=== PATIENT | female | born 1985 | race Caucasian/White ===

== ENCOUNTER → 2017-07-26 10:53 | Outpatient (CLI) | payer OTHER, SELFPAY ==
[2017-07-26 12:37] LABS: Absolute Lymphocyte Count 1.84 X10^3/ul (0.83-4.51); Absolute Neutrophil Count 4.5 X10^3/uL (2.0-7.7); Basophil# 0.02 X10^3/uL; Basophil% 0.3 % (0-1); Eosinophil# 0.07 X10^3/uL; Hematocrit 36.7 % (37-47); Lymphocyte # 1.84 X10^3/ul (4.0); Lymphocyte % 26.5 % (19-41); Mean Corp Hgb Conc 32.7 g/gl (32-36); Mean Corpuscular Hgb 28.2 pg (27.0-32.0); Mean Corpuscular Volume 86.4 fL (81-99); Mean Platelet Vol. 11.9 fl (6.2-12.0); Monocyte# 0.49 X10^3/uL; Monocyte% 7.1 % (0-10); Neutrophil # 4.51 X10^3/uL (2.7-7.7); Neutrophil % 64.8 % (47-70); POSITIVE COUNT NO; POSITIVE DIFFERENTIAL NO; POSITIVE MORPHOLOGY NO; Platelet Count 257 K/mm3 (150-450); RBC Distribution Width CV 13.7 % (11.6-14.6); RBC Distribution Width SD 42.1 fl (35.1-43.9); Red Blood Count 4.25 M/mm3 (4.2-5.4)
[2017-07-26 12:59] LABS: Vitamin B12 767 pg/mL (211-911)
[2017-07-26 13:24] LABS: ALB/GLOB Ratio 1.1 RATIO (0.9-2.4); AST(SGOT) 18 U/L (15-37); Alanine Aminotransfer ALT/SGPT 16 U/L (13-56); Alkaline Phosphatase 66 U/L (45-117); Anion Gap 6 (5-15); BUN 11 mg/dL (7-18); BUN/Creat Ratio 17.3 RATIO (10-20); Calcium,Total 7.7 mg/dL (8.5-10.1); Chloride 110 mmol/L (98-107); Creatinine, Serum 0.64 mg/dL (0.55-1.02); EST Glomerular Filtration Rate 116 mL/min (>60); Est Glom Filt Rate - Afr Amer 140 mL/min (>60); Ferritin 12 ng/mL (8-252); Globulin 3.6 g/dL (2.2-4.2); Glucose 76 mg/dL (74-106); Iron 92 ug/dL (50-170); Iron Binding Capacity,Total 425 ug/dL (250-450); Potassium 3.7 mmol/L (3.5-5.1); Protein, Total 7.6 g/dL (6.4-8.2); Sodium Level 140 mmol/L (136-145); Thyroid Stim Hormone (TSH) 1.58 uIU/mL (0.358-3.74)
== END ==
PROVIDERS: Family Provider Family Medicine; PCP Family Medicine; Visit Provider Family Medicine
DX: D64.9 Anemia, unspecified (principal)
CPT/HCPCS: 36415; 80053; 82607; 82728; 82746; 83540; 83550; 84443; 85025

== ENCOUNTER → 2018-03-19 17:10 | Outpatient (CLI) | payer OTHER, SELFPAY ==
[2018-03-19 16:34] VITALS: BMI 27.4
[2018-03-26 11:16] LABS: HPV APTIMA, High Risk Negative (Negative)
--- OUTSIDE RECORDS SUMMARY | 2018-05-06 22:48 | XMS RPT_ITS ---
:1985 Author Organization OHIP Care Team Providers Name Role Phone Hayley Keyes Attending Unavailable Gil Uribe Referring Unavailable Hayley Keyes Attending Unavailable Hayley Keyes Referring Unavailable Gil Uribe Primary Care Unavailable Gil Uribe Attending Unavailable Gil Uribe Primary Care Unavailable PROBLEMS PROBLEMS DATE TYPE CONDITION / CODE ATTENDING STATUS SOURCE 03/21/2018 Unknown Z12.4 - Encounter Sloan Keyes for screening for [facility] neoplasm of Repository cervix / Z12.4(ICD-10) 07/30/2017 Unknown D64.9 - Anemia, Gil Uribe unspecified / [facility] D64.9(ICD-10) Hospital Repository PROCEDURES PROCEDURES No Procedure Records FoundRESULTS 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 [place] [address] OFFICE VISIT Date of Service: 03/19/18 MR#: [id number] Acct: [id number] Name: SHANNON SIEGEL Rep #: [id number] : 1985 Provider: Hayley Keyes MD Age/Sex: 32/F Location: [facility] Status: Signed Intake Vital Signs03/19/18 Body Mass Index (BMI) 27.4 03/19/18 Height 5 ft 4 in 03/19/18 Weight: 130 lb 03/19/18 Body Mass Index (BMI) 22.3 03/19/18 Blood Pressure 118/70 Intake Visit Reasons: NEW ANNUAL - R/S FROM 03/19 Saw Maker Required: No Is patient in pain?: No Allergies amoxicillin Adverse Reaction (Severe, Verified 03/19/18 16:23) rash Medications Vits [Prenatabs FA ] 1 tab PO DAILY 01/29/15 [History Confirmed 03/19/18] Venlafaxine XR [Effexor Xr] 75 mg PO DAILY 01/29/15 [History Confirmed 03/19/18] Oxycodone [Oxyir] 5 - 10 mg PO Q4H PRN PRN #30 tab 07/21/16 [Rx Confirmed 03/19/18] elderberry fruit 200 mg capsule mg PO cap 03/19/18 [History Confirmed 03/19/18] Is last menstrual period known: Yes Last Menstral Period: 03/03/18 Post menopausal: No Patient : No : No PFSH Surgical History H/O breast biopsy (Acute) H/O section (Acute) History of ankle surgery (Acute) Family History Father Myocardial infarction Mother Endometriosis History of partial surgical removal of colon fibroid breast Social History number of children: 2 current occupational status: unemployed 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 DateName GA/Weeks Outcome Route Bth WeighInfant GeLabor LgtAnesthesiDel LocatProvider FOB t n h a n HPI NEW ANNUAL - R/S FROM 03/19: Details: SHANNON SIEGEL is a 32 year old who presents for annual exam. Last PAP: due History of abnormal PAP: yes Last mammogram: Female Reproductive History Last Menstral Period: 03/03/18 Cycle Length: 21-35 Bleeding Duration: 5 Questions: Metorrhagia: No, Sexually active: Yes, Dyspareunia: No, PCB: No ROS Const Constitutional: Reports as per HPI; denies poor appetite, fatigue, increased appetite, weight gain or weight loss Cardio Card: Denies chest pain Resp Resp: Denies dyspnea or cough GI GI: Reports as per HPI; denies bloating, abdominal pain, constipation, vomiting or nausea : Reports as per HPI and other; denies blood in urine, vaginal odor, vaginal itching, vaginal dryness, vaginal discharge, urinary urgency, urinary incontinence, urinary frequency, pelvic pain, painful urination, difficulty urinating, prolapse symptoms or nipple discharge Skin Skin/Breast: Denies breast pain, breast skin changes, nipple discharge, breast lump or changing lesions Exam Const General: cooperative, healthy appearing, comfortable, no acute distress, well developed, well groomed HENCA Head: normal to inspection, normocephalic Ears: hearing grossly normal bilaterally, external ears normal Nose: external nose normal Face and sinus: normal facial exam Neck Neck: normal visual inspection, full ROM, no lymphadenopathy Thyroid: thyroid normal Chest Chest palpation AND inspection: normal inspection of the chest Breast inspection: normal inspection of the breasts, normal inspection of the axillae Breast palpation: normal palpation of the breasts, normal palpation of the axillae, no axillary lymphadenopathy Resp Effort AND Inspection: normal respiratory effort GI Inspection: normal to inspection, non-distended Palpation: no guarding, soft, no hepatosplenomegaly General: bladder normal to palpation External Female Exam: normal external appearance, normal appearance of the urethra, no lesions Urethra: normal appearance of the urethra, normal palpation Speculum Exam - Vagina: normal appearance of the vagina, normal vaginal discharge Speculum Exam - Cervix: normal appearance of the cervix, no cervical discharge, no lesions, nontender Bimanual Exam- Vagina AND Uterus: No cervical tenderness, normal bimanual exam, uterine size normal, bladder normal to palpation, uterine mobility normal, uterine consistency normal, uterus non-tender, no cervical motion tenderness Bimanual Exam- Adnexa, other: normal adnexae, no adnexal masses, adnexae non-tender Skin General: no rashes or lesions noted Neuro General: alert, moves all extremities, no focal motor deficits Extrem General: no pedal edema, normal to inspection Psych Appearance: grossly normal Mental Status: mental status grossly normal Affect: normal affect Speech and Movement: speech and movement normal Attitude: cooperative Assessment AND Plan Problems 1. Encounter for gynecological examination without abnormal finding Z01.419 Plan Cervical cancer screening: pap hpv Breast cancer screening: clinical STD prevention and contraceptive options including their risks, benefits, and alternatives were reviewed with the patient and she chooses: none at this time, wishes to conceive, and desires TOLAC Encouraged maintenance of a healthy weight and active lifestyle and handout given. Calcium/vitamin D recommendations provided. Annual exam handout including recommendations for good health guidelines and basic screening information given. Problem list up to date, see problem list details for any additional plan information. follow up in one year for annual health maintenance exam or sooner if needed. Orders Orders: Coding Level of Care Code Off vis,new,prev 18-39yrs Diagnoses Encounter for gynecological examination without abnormal finding Z01.419 Gynecological examination findings: abnormal findings ABSENT 03/19/18 2330 <Electronically signed by Hayley Keyes MD> Date Hayley Keyes MD Cosigner Signature: Date (if applicable) CC: PAP IG HPV APTIMA Collected: 03/19/2018 Status: F Source: [place] 16/18,45 5:10 PM [facility] REPOSITORY Order Comment: CYTOLOGY INFORMATION: - CLINICAL INFORMATION: - DATE LMP/MENOPAUSE: - COLLECTION VIAL: Thin Prep Vial - CARD TABLE ATTENDANT SOURCE: CERVICAL - COLLECTION TECHNIQUE: CX BROOM ONLY Specimen Comment: [id number] Specimen Comment: Source.............Cervix Specimen Comment: No. of containers..01 ThinPrep Vial TYPE CODE TESTS RESULT OUT OF REFERENCE UNITS RANGE LAB L7400.0800 . High DIAGN Comment Result Comment: EPITHELIAL CELL ABNORMALITY. ATYPICAL SQUAMOUS CELLS OF UNDETERMINED SIGNIFICANCE. LAB L7400.0900 . Normal ADEQ Comment Result Comment: Satisfactory for evaluation. No endocervical component is identified. LAB L7400.1400 . Normal PERFORM Comment Result Comment: Juju Godfrey, Medical Assistant Secretary (ASCP) LAB L7400.1700 . Normal SIGN Comment Result Comment: Cecelia Ennis MD, Pathologist LAB L7400.1720 . Normal Path prov. Comment ICD9 Result Comment: R87.610 LAB L7400.2575 . Normal TEST METHOD Comment Result Comment: This liquid based ThinPrep(R) pap test was screened with the use of an image guided system. LAB L7400.2600 . Normal . COMM LAB L7400.2700 . Normal PAPSMR Comment Result Comment: The Pap smear is a screening test designed to aid in the detection of premalignant and malignant conditions of the uterine cervix. It is not a diagnostic procedure and should not be used as the sole means of detecting cervical cancer. Both false-positive and false-negative reports do occur. LAB L7400.2760 Negative Normal HPV APTIMA, Negative HR Result Comment: This test detects fourteen high-risk HPV types (16/18/31/33/35/39/45/ 51/52/56/58/59/66/68) without differentiation. Performed at: [facility] - [facility] [id number] Spiral Runner: Essence Melendez MD, Phone: [phone] Performed at: =G - [facility] [address] [id number] Spiral Runner: Essence Melendez MD, Phone: [phone] Performed By: #### L7400.0280 #### [facility] (refer to report for specific site) refer to report for address and phone number CBC W/DIFF, AUTOMATED Collected: 07/26/2017 Status: F Source: [place] 10:55 AM [facility] REPOSITORY Order Comment: Order Date: 07/26/17 Order Info: 0184-1 - CBCD TYPE CODE TESTS RESULT OUT OF RANGE REFERENCE UNITS LAB L100.1000 4.4-11.0 K/mm3 Normal WBC 7.0 LAB L100.1200 4.2-5.4 M/mm3 Normal RBC 4.25 LAB L100.1300 12.0-15.0 g/dl Normal HGB 12.0 LAB L100.1400 37-47 % Low HCT 36.7 LAB L100.1500 81-99 fL Normal MCV 86.4 LAB L100.1600 27.0-32.0 pg Normal MCH 28.2 LAB L100.1700 32-36 g/gl Normal MCHC 32.7 LAB L100.1810 11.6-14.6 % Normal RDW CV 13.7 LAB L100.1820 35.1-43.9 fl Normal RDW SD 42.1 LAB L100.1900 150-450 K/mm3 Normal PLT 257 LAB L100.2000 6.2-12.0 fl Normal MPV 11.9 LAB L100.2100 47-70 % Normal NEUT% 64.8 LAB L100.2200 19-41 % Normal LY% 26.5 LAB L100.2300 0-10 % Normal MONO% 7.1 LAB L100.2400 0-5 % Normal EO% 1.0 LAB L100.2500 0-1 % Normal BASO% 0.3 LAB L100.2550 0.0-0.9 % Normal IM GRAN % 0.300 Result Comment: IG% - Immature Granulocytes (promyelocytes, myelocytes and metamyelocytes) > 1% indicates that a LEFT SHIFT is Present. LAB L100.2620 2.0-7.7 X10 3/uL Normal Absolute Neut 4.5 LAB L100.2720 0.83-4.51 X10 3/ul Normal Absolute Lymph 1.84 Performed By: #### L100.0100, L503.0105, L500.4050, L501.9520, L503.6075, L503.6150, L503.6550, L506.0250 #### [facility] [address] [place], [place], [address] VITAMIN B12 Collected: 07/26/2017 Status: F Source: [place] 10:55 AM [facility] REPOSITORY Order Comment: Order Date: 07/26/17 Order Info: 2132-9 - B12 TYPE CODE TESTS RESULT OUT OF RANGE REFERENCE UNITS LAB L503.0105 211-911 pg/mL Normal Vitamin B12 767 Performed By: #### L100.0100, L503.0105, L500.4050, L501.9520, L503.6075, L503.6150, L503.6550, L506.0250 #### [facility] [address] [place], [address] COMPREHENSIVE METABOLIC Collected: 07/26/2017 Status: F Source: [place] SALAS 10:55 AM [facility] REPOSITORY Order Comment: Order Date: 07/26/17 Order Info: 0786-1 - CMP Order Info: 3016-3 - TSH Order Info: 2500-7 - TIBC Order Info: 2498-4 - FE Order Info: 2276-4 - WALTER Order Info: 2284-8 - FOLS Is Patient Taking Vitamins or Folic Acid Supplements? Y TYPE CODE TESTS RESULT OUT OF RANGE REFERENCE UNITS LAB L501.0100 74-106 mg/dL Normal GLU 76 Result Comment: Please note revised GLUCOSE reference range effective 2017. LAB L501.1000 7-18 mg/dL Normal BUN 11 LAB L501.1100 0.55-1.02 mg/dL Normal CREAT,SERUM 0.64 Result Comment: The validity of the calculated GFR AND GFRAA in patients over 70 years has not been determined. Clinical correlation is essential. LAB L501.1110 >60 mL/min Normal EST GFR 116 Result Comment: Non- GFR Calc LAB L501.1115 >60 mL/min Normal EST GFR - AA 140 Result Comment: GFR Calc LAB L501.1300 10-20 RATIO Normal BUN/CRE 17.3 LAB L501.1500 6.4-8.2 g/dL T Normal PROT 7.6 LAB L501.1800 3.2-5.0 g/dL Normal ALB 4.0 LAB L501.1950 2.2-4.2 g/dL Normal GLOB 3.6 LAB L501.2000 0.9-2.4 RATIO Normal A/G 1.1 LAB L501.2200 8.5-10.1 mg/dL Low CA 7.7 LAB L501.4100 15-37 U/L Normal AST 18 LAB L501.4305 45-117 U/L Normal ALK P 66 LAB L501.4405 13-56 U/L Normal ALT 16 LAB L501.4600 0.20-1.00 mg/dL T Normal BILI 0.40 LAB L501.5300 136-145 mmol/L NA Normal 140 LAB L501.5600 3.5-5.1 mmol/L K Normal 3.7 LAB L501.5900 98-107 mmol/L High CL 110 LAB L501.6100 21.0-32.0 mmol/L Normal CO2 24.0 LAB L501.6200 5-15 Normal GAP 6 Performed By: #### L100.0100, L503.0105, L500.4050, L501.9520, L503.6075, L503.6150, L503.6550, L506.0250 #### [facility] [address] [place], [place], [address] THYROID STIM HORMONE Collected: 07/26/2017 Status: F Source: [place] (TSH) 10:55 AM [facility] REPOSITORY Order Comment: Order Date: 07/26/17 Order Info: 0786-1 - CMP Order Info: 3016-3 - TSH Order Info: 2500-7 - TIBC Order Info: 2498-4 - FE Order Info: 2276-4 - WALTER Order Info: 2284-8 - FOLS Is Patient Taking Vitamins or Folic Acid Supplements? Y TYPE CODE TESTS RESULT OUT OF RANGE REFERENCE UNITS LAB L501.9520 0.358-3.74 uIU/mL Normal TSH 1.58 Performed By: #### L100.0100, L503.0105, L500.4050, L501.9520, L503.6075, L503.6150, L503.6550, L506.0250 #### [facility] [address] [place], [place], [address] IRON BINDING Collected: 07/26/2017 Status: F Source: [place] CAPACITY,TOTAL 10:55 AM [facility] REPOSITORY Order Comment: Order Date: 07/26/17 Order Info: 785- - CMP Order Info: 3 - TSH Order Info: 2499-7 - TIBC Order Info: 2494 - FE Order Info: 4 - WALTER Order Info: 228-8 - FOLS Is Patient Taking Vitamins or Folic Acid Supplements? Y TYPE CODE TESTS RESULT OUT OF RANGE REFERENCE UNITS LAB L503.6075 250-450 ug/dL Normal TIBC 425 Performed By: #### L100.0100, L503.0105, L500.4050, L501.9520, L503.6075, L503.6150, L503.6550, L506.0250 #### [facility] [address] [place], [place], [address] IRON Collected: 07/26/2017 Status: F Source: [place] 10:55 AM [facility] REPOSITORY Order Comment: Order Date: 07/26/17 Order Info: 785-04 - CMP Order Info: 3 - TSH Order Info: 7 - TIBC Order Info: 4 - FE Order Info: 2275-07 - WALTER Order Info: 2283-8 - FOLS Is Patient Taking Vitamins or Folic Acid Supplements? Y TYPE CODE TESTS RESULT OUT OF RANGE REFERENCE UNITS LAB L503.6150 50-170 ug/dL Normal IRON 92 Performed By: #### L100.0100, L503.0105, L500.4050, L501.9520, L503.6075, L503.6150, L503.6550, L506.0250 #### [facility] [address] [place], [place], [address] FERRITIN Collected: 07/26/2017 Status: F Source: [place] 10:55 AM [facility] REPOSITORY Order Comment: Order Date: 07/26/17 Order Info: 785-1 - CMP Order Info: 3 - TSH Order Info: 2500-7 - TIBC Order Info: 24984 - FE Order Info: 227-4 - WALTER Order Info: 2284-8 - FOLS Is Patient Taking Vitamins or Folic Acid Supplements? Y TYPE CODE TESTS RESULT OUT OF RANGE REFERENCE UNITS LAB L503.6550 8-252 ng/mL Normal FERRITIN 12 Performed By: #### L100.0100, L503.0105, L500.4050, L501.9520, L503.6075, L503.6150, L503.6550, L506.0250 #### [facility] [address] [place], [address] FOLATES, (FOLIC ACID) Collected: 07/26/2017 Status: F Source: [place] 10:55 AM [facility] REPOSITORY Order Comment: Order Date: 07/26/17 Order Info: 0786-1 - CMP Order Info: 3016-3 - TSH Order Info: 2500-7 - TIBC Order Info: 2498-4 - FE Order Info: 2276-4 - WALTER Order Info: 2284-8 - FOLS Is Patient Taking Vitamins or Folic Acid Supplements? Y TYPE CODE TESTS RESULT OUT OF RANGE REFERENCE UNITS LAB L506.0250 3.1-55.4 ng/mL Normal FOLATES 43.40 Performed By: #### L100.0100, L503.0105, L500.4050, L501.9520, L503.6075, L503.6150, L503.6550, L506.0250 #### [facility] [address] [place], [address] ALLERGIES ALLERGIES DATE TYPE / CODE NAME / CODE REACTION SEVERITY SOURCE 03/19/2018 Drug amoxicillin/F Rash SV [facility] Allergy/4160 [id number](RXN Hospital 42038(SNOMED ORM) Repository CT) 07/21/2016 Drug No Known Unknown [facility] Allergy/4160 Allergies/F00 [facility] 17617(SNOMED 4136654(RXNOR Repository CT) M) ENCOUNTERS ENCOUNTERS ADMIT/DISCHARGE ACCOUNT ADMITTING ENCOUNTER LOCATION SOURCE NUMBER CLASS 03/19/2018 [id number] Ambulatory [address] ing:LABSPEC Repository 03/19/2018/ [id number] Ambulatory BMSBuilding:B [place] [address] [facility] Repository 07/26/2017 [id number] Ambulatory [address] ing:MFPLAB Repository PAYERS PAYERS ENCOUNTER GUARANTOR PAYER SUBSCRIBER SOURCE 03/19/2018 SHANNON Primary SHANNON [id number] Insurance:SHELBISOTIM PEREZB: Replaced By [facility] BRITTANY [id number], Number: Repository id [id number]: [id number] Date:[id number] [address] [address] [address]ZH: 03/19/2018 Secondary NOT GIVENUNK [place] Insurance:SELF PAY [facility] Number: Effective Repository Date:2018-03-19 03/19/2018 SHANNON Primary SHANNON [id number] Insurance:SHELBISOTIM PEREZB: [id number], Number: Repository id [id number]: [id number] Date:[id number] [address], [place] [address]BN: 03/19/2018 Secondary NOT GIVENUNK [place] Insurance:SELF PAY [facility] Number: Effective Repository Date:2018-03-19 07/26/2017 SHANNON [facility] SHANNON SIEGEL[address]21 Insurance:GINO PEREZB: [facility] [id number], Number: Repository id [id number]: [id number] Date:[id number], [place] [address]OH: 07/26/2017 Secondary NOT GIVENUNK [place] Insurance:SELF PAY [facility] Number: Effective Repository Date:2017-07-26
== END ==
PROVIDERS: Family Provider Family Medicine; PCP Family Medicine; Referring Provider Obstetrics & Gynecology; Visit Provider Obstetrics & Gynecology
DX: Z12.4 Encounter for screening for malignant neoplasm of cervix (principal)
CPT/HCPCS: 87624; 88175; G0145

== ENCOUNTER → 2019-04-09 13:45 | Outpatient (CLI) | payer OTHER, SELFPAY ==
[2019-03-30 09:09] VITALS: BMI 27.4
--- NOTE | 2019-04-09 13:46 | BI_ITS ---
MAMMOGRAPHY - BILATERAL DIAGNOSTIC REASON FOR EXAM: Female, 33 years old. 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 TECHNIQUE: Digital examination. Mediolateral oblique (MLO) and craniocaudad (CC) views of both breasts were obtained. CAD: CAD was performed on this study. COMPARISON: None. FINDINGS: Breast Composition: There are scattered areas of fibroglandular density. There is a 12.9 mm mass within the anterior right breast upper outer region directly underlying the palpable abnormality marker. The margins appear well defined except where they are obscured by adjacent fibroglandular tissue. There is no associated suspicious pleomorphic calcification. There is no associated architectural distortion. Recommend further evaluation and characterization with sonography at this time. No other significant abnormalities are identified. The left breast demonstrates no mammographic evidence of malignancy. BI/DIAG MAMM W/CAD, BILAT IMPRESSION: 12.9 mm right breast mass corresponding to the palpable abnormality. Recommend sonographic evaluation and characterization. ASSESSMENT CATEGORY: BIRADS Category 0: Incomplete. Need additional imaging evaluation. A letter regarding these results will be sent to the patient by the facility within 30 days. FOLLOW UP RECOMMENDATION: Ultrasound Recommended. (I) Approximately 10% of breast cancers are not detected by mammography. A normal mammogram should not delay biopsy of a clinically suspicious abnormality. Electronically Signed: Rigoberto Michel MD at 16:29 EST , Service support ,
--- NOTE | 2019-04-09 13:46 | US_ITS ---
STUDY: ULTRASOUND BREAST - RIGHT REASON FOR EXAM: Female, 33 years old. Right breast palpable mass. TECHNIQUE: Axial and longitudinal images of the RIGHT breast were performed with a high resolution ultrasound transducer. # OF IMAGES: 16 COMPARISON: No prior similar exams at this institution. FINDINGS: RIGHT Breast: There is a 12.9 x 0.73 x 1.11 cm, ovoid, hypoechoic mass (with low-level internal echoes) in the right breast 10 to 11:00 position located 2 cm from the nipple. This finding corresponds with the palpable abnormality as well as the mammographically evident abnormality from today''s exam. There is no posterior enhancement. There is no posterior shadowing. There is no change of shape during compression. The margins appear sharp and smooth. This finding is wider than it is tall. There is no associated significant vascularity. US/Breast Limited Unilateral IMPRESSION: Probably benign fibroadenoma. ASSESSMENT CATEGORY: BIRADS Category 3: Probably Benign - Short-Interval Follow-up Suggested. A letter regarding these results will be sent to the patient by the facility within 30 days. Recommendation: I highly recommend short interval follow-up unilateral right breast mammography and sonography in 3 months to document stability. Electronically Signed: Rigoberto Michel MD at 16:34 EST , Service support ,
== END ==
PROVIDERS: Family Provider Family Medicine; PCP Family Medicine; Referring Provider Obstetrics & Gynecology; Visit Provider Obstetrics & Gynecology
DX: N63.10 Unspecified lump in the right breast, unspecified quadrant (principal)
CPT/HCPCS: 76642; 77062; 77066; G0279

== ENCOUNTER → 2019-04-20 13:06 | Outpatient (CLI) | payer OTHER, SELFPAY ==
[2019-04-20 12:54] VITALS: BMI 27.4
--- NOTE | 2019-04-20 13:06 | RAD_ITS ---
STUDY: X-RAY - RIGHT WRIST REASON FOR EXAM: Female, 33 years old. CYST TECHNIQUE: 3 view(s) of the wrist were obtained. COMPARISON: None. FINDINGS: Normal visualized distal radius and ulna. Normal radiocarpal articulation. Normal distal radioulnar articulation. Normal carpal bones. Normal carpal articulations. Normal carpometacarpal articulation of the thumb. Normal second through fifth carpometacarpal articulations. Normal visualized metacarpal bones. The soft tissue structures are unremarkable. There is no demonstrated acute fracture. RAD/Wrist min 3 Views IMPRESSION: Normal x-ray examination of the wrist. Electronically Signed: Lyudmila De La Garza MD at 1:52 EST , Service support ,
== END ==
PROVIDERS: Family Provider Family Medicine; PCP Family Medicine; Referring Provider Orthopaedic Surgery; Visit Provider Orthopaedic Surgery
DX: M67.431 Ganglion, right wrist (principal)
CPT/HCPCS: 73110

== ENCOUNTER → 2019-05-06 09:29 | Outpatient (CLI) | payer OTHER, SELFPAY ==
[2019-05-06 15:55] VITALS: BMI 27.4
== END ==
PROVIDERS: Referring Provider Surgery; Visit Provider Surgery
DX: R92.8 Other abnormal and inconclusive findings on diagnostic imaging of breast (principal)

== ENCOUNTER → 2019-05-06 | Outpatient (CLI) | payer OTHER, SELFPAY ==
[2019-05-06 15:55] VITALS: BMI 27.4
--- NOTE | 2019-05-06 16:00 | BRBX_PTH ---
PATIENT: SHANNON SIEGEL LOC: [facility] U#:[id number] AGE/SX: 33/F ROOM: RE05/06/[address]: Dr. Julian Peacock MD : 1985 BED: DIS: 05/06/2019 SPEC #: [id number] RECD: 05/07/19 07:20 STATUS: ANDREAS RIO #: [id number] DEANNA: 05/06/19 16:[address]: Julian Peacock DEPT: SURGICAL PATHOLOGY RECD BY: Colby Mendieta Tissues: Right breast, NOS Procedures: Surgery Specimen Level IV HEADER OPERATION: Ultrasound-guided needle core biopsy of right breast PRE-OP DIAGNOSIS: Abnormal right mammogram TISSUE SUBMITTED: Right breast tissue ISCHEMIC TIME: 1 minute FIXATION TIME: 27.5 hours MICROSCOPIC DIAGNOSIS Right breast tissue, ultrasound-guided needle core biopsy: Fibroadenoma. Negative for atypia or malignancy. See comment. LISA:jair 1/31/20 COMMENT Correlation with clinical, radiologic findings and appropriate follow up are necessary. MICROSCOPIC DESCRIPTION Slides are reviewed. GROSS DESCRIPTION Received in fixative is one container labeled with the patient's name and designated right breast. The specimen consists of two elongated fragments of shaffer soft tissue each measuring 0.8 cm in length and 0.1 cm in diameter. The specimen is totally submitted in one cassette. / SJ:rg 05/07/19 TC:1 CPT: 71844
== END | disposition home or self-care (01) ==
LOC: LABSPEC 05-07 08:20
PROVIDERS: Visit Provider Surgery
DX: D24.1 Benign neoplasm of right breast (principal)
CPT/HCPCS: 88305

== ENCOUNTER 2019-11-16 07:18 | Emergency (ER) | payer OTHER, SELFPAY ==
[2019-11-11 11:00] VITALS: BMI 27.4
[2019-11-16 07:19] VITALS: BP 117/70; PULSE 119; RESP 19; TEMP 36.5; O2SAT 95; BMI 24.0
--- NOTE | 2019-11-16 07:34 | ED.DCSUM_ITS ---
History of Present Illness Chief Complaint: Fever Informant: Patient Narrative: Patient presents emergency department with 3 days of fever and body aches. She denies any other symptoms such as sore throat vomiting diarrhea cough shortness of breath. No rashes. She states that she just found out that she was has not seen OB yet. She has been using Tylenol to help reduce fever. As it was over the weekend she has not talked to her doctor about this. Past Medical History - Allergies and Home Meds Allergies/Adverse Reactions: Allergies amoxicillin Adverse Reaction (Severe, Verified 11/16/19 07:22) rash Primary Care Physician: Gil Uribe MD [Primary Care Provider] - Smoking Status: Never smoker Review of Systems General: Reports: Fever. Denies: Chills, Sweats Eyes: Denies: Visual changes - bilaterally, Diplopia ENT: Denies: Rhinorrhea, Sore throat Cardiovascular: Denies: Chest pain, Palpitations Respiratory: Denies: Dyspnea, Cough, Dyspnea on exertion Gastrointestinal: Denies: Abdominal pain, Nausea, Vomiting, Diarrhea, Melena, Hematochezia Genitourinary: Denies: Dysuria, Hematuria, Frequency Musculoskeletal: Reports: Myalgias, Neck pain, Back pain. Denies: Extremity Pain Skin: Denies: Rash, Wounds Neurological: Denies: Headache, Weakness, Numbness Physical Exam Vital Signs/Narrative: Vital Signs Temp Pulse Resp BP Pulse Ox 11/16/19 07:19 97.7 F L 119 H 19 H 117/70 95 Inital Vital Signs reviewed: Yes General: Well nourished, Well developed, No Acute Distress Head: Normocephalic, Atraumatic Eyes: Perrl, EOMI ENT: Moist mucous membranes, No rhinorrhea Neck: Supple, Nontender Cardiovascular: Regular rate, Regular rhythm, No murmurs Respiratory: No distress, CTA bilaterally, Chest nontender Abdomen: Soft, Nontender, Nondistended, Normal bowel sounds Back: Nontender, Normal Inspection Extremities: Nontender, No edema Skin: Normal color, No rash Neurological: Alert, Oriented x3, Cranial nerves II-XII grossly intact, Normal Strength, Normal Sensation Psychological: Normal affect, Normal Mood Diagnostic/Tx/Re-eval Laboratory Last Values Urine Color Yellow (Yellow) 11/16/19 07:42 Urine Clarity Sl. Cloudy (Clear) 11/16/19 07:42 Urine pH 5.0 (5.0 - 8.0) 11/16/19 07:42 Ur Specific [place] 1.020 (1.002-1.030) 11/16/19 07:42 Urine Protein 30 mg/dl (Negative) H 11/16/19 07:42 Urine Glucose (UA) Normal mg/dl (Normal) 11/16/19 07:42 Urine Ketones 50 mg/dl (Negative) H 11/16/19 07:42 Urine Occult Blood 10 /ul (Negative) H 11/16/19 07:42 Urine Nitrite Negative (Negative) 11/16/19 07:42 Urine Bilirubin Negative mg/dL (Negative) 11/16/19 07:42 Urine Urobilinogen Normal mg/dl (Normal) 11/16/19 07:42 Ur Leukocyte Esterase 25 /ul (Negative) H 11/16/19 07:42 Urine RBC 0-5 SEEN /hpf (0-5) 11/16/19 07:42 Urine WBC 0-5 SEEN /hpf (0-5) 11/16/19 07:42 Ur Squamous Epith Cells 0-5 SEEN /hpf (5-10) 11/16/19 07:42 Urine Bacteria RARE /hpf (None Seen) 11/16/19 07:42 Urine Mucus 0 SEEN /hpf (<or=2+) 11/16/19 07:42 - Medical Decision Making Urinalysis was normal. COVID-19 test was sent. Patient clinically appears well. I encouraged her to continue Tylenol as needed for fever control and drink plenty of fluids and rest. Follow-up with [facility] for her . Return if worsening or concerns ED Disposition - Plan for ED Patient: Disposition: Home or Assisted Living Diagnosis: Viral syndrome, First trimester , Suspected COVID-19 virus infection Instructions: ED Viral Syndrome Referrals: Gil Uribe MD [Primary Care Provider] - As Needed
[2019-11-16 07:49] VITALS: PULSE 104; RESP 16; O2SAT 95
[2019-11-16 07:50] LABS: Mucous, Urine 0 SEEN /hpf (<or=2+)
[2019-11-16 07:58] LABS: Color, Urine Yellow (Yellow); Glucose, Dipstick Normal (Normal); Ketone-Dipstick 50 mg/dl (Negative); Leukocyte Esterase-Dipstick 25 /ul (Negative); Nitrite-Dipstick Negative (Negative); Occult Blood-Urine 10 /ul (Negative); Protein-Dipstick 30 mg/dl (Negative); Urine Bilirubin Dipstick Negative (Negative); Urine Clarity Sl. Cloudy (Clear); Urine Urobilinogen Normal (Normal)
[2019-11-16 08:17] LABS: Squamous Epithelial Cells - UA 0-5 SEEN /hpf (5-10); White Blood Cells 0-5 SEEN /hpf (0-5)
[2019-11-16 08:18] LABS: Bacteria RARE /hpf (None Seen); Red Blood Cells-Urine 0-5 SEEN /hpf (0-5)
[2019-11-16 09:19] VITALS: RESP 16
== END 2019-11-16 09:19 | disposition home or self-care (01) ==
PROVIDERS: Emergency Provider Emergency Medicine; PCP Family Medicine
DX: O98.511 Other viral diseases complicating pregnancy, first trimester (principal); R50.9 Fever, unspecified; M79.10 Myalgia, unspecified site; Z20.828 Contact with and (suspected) exposure to other viral communicable diseases; Z3A.00 Weeks of gestation of pregnancy not specified
CPT/HCPCS: 81001; 87635; 94799; 99282; U0003

== ENCOUNTER → 2019-11-16 09:27 | Outpatient (CLI) | payer OTHER, SELFPAY ==
[2019-11-16 07:19] VITALS: BMI 24.0
[2019-11-16 10:23] LABS: hCG Titer Quant., Serum 29 mIU/mL (1-3)
== END ==
PROVIDERS: PCP Family Medicine; Referring Provider Obstetrics & Gynecology; Visit Provider Obstetrics & Gynecology
DX: N91.2 Amenorrhea, unspecified (principal)
CPT/HCPCS: 36415; 84702

== ENCOUNTER → 2019-11-18 09:47 | Outpatient (CLI) | payer OTHER, SELFPAY ==
[2019-11-16 07:19] VITALS: BMI 24.0
[2019-11-18 11:24] LABS: hCG Titer Quant., Serum 63 mIU/mL (1-3)
== END ==
PROVIDERS: PCP Family Medicine; Referring Provider Obstetrics & Gynecology; Visit Provider Obstetrics & Gynecology
DX: N91.2 Amenorrhea, unspecified (principal)
CPT/HCPCS: 36415; 84702

== ENCOUNTER → 2019-11-21 08:16 | Outpatient (CLI) | payer OTHER, SELFPAY ==
[2019-11-16 07:19] VITALS: BMI 24.0
[2019-11-21 09:40] LABS: hCG Titer Quant., Serum 50 mIU/mL (1-3)
== END ==
PROVIDERS: PCP Family Medicine; Referring Provider Obstetrics & Gynecology; Visit Provider Obstetrics & Gynecology
DX: O20.0 Threatened abortion (principal); Z3A.00 Weeks of gestation of pregnancy not specified
CPT/HCPCS: 36415; 84702

== ENCOUNTER 2019-11-21 17:21 | Inpatient (IN) | payer OTHER, SELFPAY ==
[2019-11-21] VITALS (7 sets, daily range): BP systolic 105–114; BP diastolic 60–72; PULSE 82–102; RESP 16–18; TEMP 36.8–37.3; O2SAT 96–100; BMI 23.7; BMI 24.0; BMI 24.1
--- NOTE | 2019-11-21 17:59 | EKG12_ITS ---
Test Reason : Blood Pressure : / mmHG Vent. Rate : 090 BPM Atrial Rate : 090 BPM P-R Int : 144 ms QRS Dur : 078 ms QT Int : 358 ms P-R-T Axes : 051 014 047 degrees QTc Int : 437 ms Normal sinus rhythm Nonspecific T wave abnormality Abnormal ECG Confirmed by JOSE CARLOS YI, MAC ([id number]), proposal editor RODRIGUEZ GOSS ([id number]) on 11/23/2019 2:40:40 PM Referred By: DC Confirmed By:MAC BRANCH MD
[2019-11-21] MEDS: 0.9% Normal Saline 1,000 ML 1000 ML IV (18:34)
[2019-11-21 18:45] LABS: Absolute Lymphocyte Count 1.07 X10^3/uL (0.83-4.51); Absolute Neutrophil Count 2.2 X10^3/uL (2.0-7.7); Basophil# 0.02 X10^3/uL; Basophil% 0.5 % (0-1); Eosinophil# 0.03 X10^3/uL; Eosinophils% 0.8 % (0-5); Hematocrit 33.5 % (37-47); Hemoglobin 10.9 g/dL (12.0-15.0); Lymphocyte # 1.07 X10^3/ul (4.0); Lymphocyte % 28.5 % (19-41); Mean Corp Hgb Conc 32.5 g/dL (32-36); Mean Corpuscular Hgb 28.2 pg (27.0-32.0); Mean Corpuscular Volume 86.6 fL (81-99); Mean Platelet Vol. 11.1 fl (6.2-12.0); Monocyte# 0.45 X10^3/uL; NRBC Flagged by Analyzer 0 % (0-5); Neutrophil # 2.16 X10^3/uL (2.7-7.7); Neutrophil % 57.7 % (47-70); POSITIVE MORPHOLOGY YES; Platelet Count 232 K/mm3 (150-450); RBC Distribution Width CV 13.2 % (11.6-14.6); RBC Distribution Width SD 41.4 fl (35.1-43.9); Red Blood Count 3.87 M/mm3 (4.2-5.4); White Blood Count 3.8 K/mm3 (4.4-11.0)
[2019-11-21 18:51] LABS: Differential Indicated SCAN CRITERIA MET
[2019-11-21 19:07] LABS: International Normalized Ratio 1.1; Prothrombin Time (Protime)PT. 13.2 SECONDS (11.7-14.9)
[2019-11-21 19:13] LABS: Erythrocyte Sedimentation Rate 45 mm/hr (0-20)
[2019-11-21 19:21] LABS: ALB/GLOB Ratio 0.7 RATIO (0.9-2.4); AST(SGOT) 102 U/L (15-37); Alanine Aminotransfer ALT/SGPT 140 U/L (13-56); Albumin, Serum 3.2 g/dL (3.2-5.0); Alkaline Phosphatase 300 U/L (45-117); Anion Gap 7 (5-15); BUN 10 mg/dL (7-18); Calcium,Total 8.4 mg/dL (8.5-10.1); Chloride 103 mmol/L (98-107); Creatinine, Serum 0.91 mg/dL (0.55-1.02); EST Glomerular Filtration Rate 76 mL/min (>60); Est Glom Filt Rate - Afr Amer 92 mL/min (>60); Estimated Creatinine Clearance 75.93 ml/min; Globulin 4.3 g/dL (2.2-4.2); Glucose 102 mg/dL (74-106); Protein, Total 7.5 g/dL (6.4-8.2); Sodium Level 138 mmol/L (136-145)
[2019-11-21 19:37] LABS: Differential Comment SCANNED; Platelet Estimate ADEQUATE (ADEQ); Red Cell Morphology NORM C+C NORMAL (NORM C&C)
[2019-11-21 19:51] LABS: Mucous, Urine 0 SEEN /hpf (<or=2+); Red Blood Cells-Urine 0 SEEN /hpf (0-5)
[2019-11-21 19:56] LABS: Color, Urine Yellow (Yellow); Glucose, Dipstick Normal (Normal); Ketone-Dipstick 5 mg/dl (Negative); Leukocyte Esterase-Dipstick 25 /ul (Negative); Nitrite-Dipstick Negative (Negative); Occult Blood-Urine 10 /ul (Negative); Protein-Dipstick 30 mg/dl (Negative); Urine Clarity Cloudy (Clear); Urine Urobilinogen Normal (Normal)
[2019-11-21 20:00] LABS: Urine Bilirubin Dipstick 1 mg/dL (Negative)
[2019-11-21 20:05] LABS: Hyaline Cast 0-5 SEEN /lpf (0-5); Squamous Epithelial Cells - UA 5-10 SEEN /hpf (5-10)
[2019-11-21 20:06] LABS: Bacteria 1+ /hpf (None Seen); White Blood Cells 5-10 SEEN /hpf (0-5)
[2019-11-21 20:08] LABS: Fine Granular Cast- Urine 0-5 SEEN /lpf (0-5)
--- NOTE | 2019-11-21 21:03 | ED.DCSUM_ITS ---
- ER Visit Summary Date of Service: 11/21/19 Chief Complaint: Fever History of Present Illness: The patient is a 34 F who presents for fevers over the past week. T-max 104. She also reports a suspected miscarriage. She had some vaginal bleeding. Her initial quant earlier in the week was in the 20s. Repeat was in the 60s, and the next repeat was down to the 50s earlier today. 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 She does have some left side abdominal pain and a rash over her lower extremities. She had a prior COVID test that was negative. No cough or respiratory symptoms. Physical Examination: Afebrile and vital signs unremarkable here. Alert and oriented. No acute distress. Heart regular. Lungs clear. Abdomen soft. Extremities show a nodular erythematous rash over her bilateral lower legs. Otherwise exam unremarkable. Test Results: EKG showed sinus rhythm at a rate of 90 with nonspecific T wave changes. She initially refused chest x-ray. White count 3.8, hemoglobin 10.9, potassium 3.0. Alkaline phosphatase 300, ALT 140, AST 102. Coags normal. Urinalysis unremarkable. COVID test pending. Cultures pending. ESR 45, CRP 127. Emergency Department Course and Treatment: Patient had COVID-19 precautions. Work-up as above. COVID test is pending. It sounds like she miscarried. Her quant's are dropping. She had some bleeding. Her blood type is O+. She is at most 5 weeks . I believe she is too early to visualize anything by ultrasound, so this was not performed in the ED. She is having fevers and elevated liver enzymes. It is unclear if she has COVID or some other type of infection causing hepatitis/transaminitis. No history of hepatitis. Her coags were normal. She is taking Tylenol up to 1 g every 6 hours for the past week. She has not taken anything extra. Rashes concerning for erythema nodosum. Patient will need inpatient care. I spoke with the hospitalist to coordinate further testing. Patient was agreeable to imaging. Will start with the chest x-ray. Results are pending. Hospitalist also requested a d-dimer. She will see the patient before making judgments about further imaging such as CT. Patient will be admitted to the COVID unit. Treatment Plan: As above Disposition: Admission Impression: Fevers, transaminitis, rash, miscarriage This note was generated with Dragon dictation software. It may contain incorrect words, spelling, and punctuation that were not noted in review of the chart prior to signing ED Disposition - Plan for ED Patient: Referrals: Gil Uribe MD [Primary Care Provider] -
--- NOTE | 2019-11-21 21:30 | PCM.HP.STD ---
Problem List (1) Acute viral syndrome Status: Acute (2) Transaminitis Status: Acute (3) Incomplete miscarriage Status: Acute (4) Hypokalemia Status: Acute (5) Anxiety and depression Status: Chronic History of Present Illness Date of Admission: 11/21/19 Chief Complaint: Fever, Abdominal Pain, N/V, Headache, Congestion, BL LE rash, Vaginal bleeding w/ active miscarriage (5 weeks) The patient is a 34 y/o F w/ PMHx: Anxiety and Depression, currently reportedly 5 weeks who presents to the [facility] ED on 11/21/19 with history of 1 week of intermittent fevers, body aches, frontal throbbing headaches with some light sensitivity, congestion without rhinorrhea or post-nasal drip, declining HCG w/ vaginal bleeding initially dark brown blood spotting now intermittent bright red blood x 2 days with onset with bleeding LLQ abdominal discomfort described as cramping ~ 3-4/10 in severity following with Dr. Keyes with now 24 hour onset of BL LE blanching erythematous rash, non-pruritic. On examination in the ED patient has also noted RUQ discomfort with palpation although no rebound or guarding. She denies having any ill contacts in the home (, 2 children), no recent ill contacts and reports only 1 shopping grocery store visit weekly masked. She was initially seen in the ED on 11/16/19 with fever and body aches x 3 days duration at that time with COVID testing performed and noted to be negative. She initially refused the CXR. Work-up in the ED included T 98.4, heart rate 82, BP 107/67, respiratory rate 18, 100% on room air, CBC with WC 3.8, hemoglobin 10.9, platelet 232 with no significant shift, no market lymphopenia, ESR 45, coags unremarkable, CMP with potassium 3.0, calcium 8.4, AST/ALT 102/140, alk phos 300, CRP 127, urinalysis not severe appearing, COVID repeat testing pending, blood culture x2 pending per ED. discussed with ED physician and given unclear history will obtain d-dimer with plan for CT abdomen and pelvis given abdominal complaints and active miscarriage but if dimer elevated would also include CT of the chest. Past Medical History Past Medical History (Chronic Problems): Chronic Problems (Last Updated 01/21/20 @ 15:04 by Patience Echevarria) Anxiety and depression (Chronic) Medical History: Medical History (Last Updated 04/28/19 @ 15:04 by Patience Echevarria) Abnormal ultrasound of breast (Acute) R92.8 Anxiety F41.9 x2 Lump of right breast N63.10 Allergies amoxicillin Adverse Reaction (Severe, Verified 11/21/19 17:27) rash Home Medications: Ambulatory Orders Medication Instructions Recorded Vits [Prenatabs FA ] 1 tab PO DAILY 01/29/15 Venlafaxine XR [Effexor Xr] 75 mg PO DAILY 01/29/15 Surgical History: Surgical History (Last Updated 05/06/19 @ 15:54 by Corin Wilkins) H/O breast biopsy Z98.890 H/O section Z98.891 History of ankle surgery Z98.890 History of breast augmentation Z98.82 History of right breast biopsy Onset Date: ~04/2019 Z98.890 History of tonsillectomy Z90.89 Surgical History: - - Bilateral breast augmentation, right ankle surgery x2, tonsillectomy, x2. 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 Alcohol: None Drugs: None - *Family History Maternal Family History: Family History (Last Updated 04/28/19 @ 15:05 by Patience Echevarria) Father Myocardial infarction Mother Endometriosis History of partial surgical removal of colon fibroid breast Arthritis Daughter Asthma Grandmother Arthritis Grandfather Heart disease History Items: - - Patient notes a maternal family history of endometriosis, osteoarthritis. Paternal Family History: Family History (Last Updated 04/28/19 @ 15:05 by Patience Echevarria) Father Myocardial infarction Mother Endometriosis History of partial surgical removal of colon fibroid breast Arthritis Daughter Asthma Grandmother Arthritis Grandfather Heart disease History Items: High Cholesterol, Heart Disease, Hypertension, - - Patient notes a paternal family history of heart disease, MA, CAD earlier than age 60. Review of Systems Constitutional: Reports: Anorexia, Fever, Malaise, Weakness, Fatigue. Denies: Chills, Weight Change HEENT: Reports: Head Aches, Nasal Congestion, Sinus Congestion. Denies: Sinus Drainage Cardiovascular: Denies: Chest Pain, Palpitations Respiratory: Denies: Cough, Shortness of Breath, Shortness of breath at rest, Shortness of breath upon exertion, Sputum production Gastrointestinal: Reports: Abdominal Pain, Nausea, Vomiting. Denies: Constipation, Diarrhea Genitourinary: Denies: Dysuria Gynecological: Reports: Vaginal bleeding Musculoskeletal: Reports: Joint Pain. Denies: Joint Tenderness Skin: Reports: Rash, Skin Changes. Denies: Wounds Neurological: Denies: Numbness, Tingling, Focal weakness Psychiatric: Reports: Anxiety, Depression. Denies: Homicidal Ideations, Suicidal Ideations Hematologic/ Lymphatic: Denies: Easy Bruising, Easy Bleeding VTE Information - Inpt Only VTE Present on Admission: No VTE Mechan Device Prophylaxis: None VTE Pharm Prophylaxis ordered?: No Reason prophylaxis not ordered:: Treatment Not Indicated - Pending dimer, covid testing, if concerns will add lovenox. Patient Problems: Active and Suspected Problems (Last Updated 04/28/19 @ 15:04 by Patience Echevarria) Acute viral syndrome (Acute) Transaminitis (Acute) Incomplete miscarriage (Acute) Hypokalemia (Acute) Subjective: Seated upright in ED bed, fatigued appearance otherwise no acute distress. Objective: Physical Examination: General: awake, alert, oriented x 3 and cooperative, seated upright in the ED bed in no apparent distress, fatigued appearance. Skin: normal color, turgor, no icterus, cyanosis except noted bilateral lower extremity distal thigh to ankle erythematous rash, nonraised, blanching, nonpruritic. HEENT: AT/NC, EOMI, PERRLA, MMM, no carotid bruits or JVD noted. Lungs: CTA bilaterally, moderate effort, mild decrease BL bases, no rales, ronchi or wheezing. Heart: Regular rate and rhythm; no gallop, rub audible. Abdomen: soft, discomfort to the right upper quadrant and left lower quadrant, no specific rebound or guarding however associated, ND, normal BS, no HSM. Extremities: no cyanosis, clubbing, or edema. Neurological: patient awake, alert, oriented x 3; cognitive function intact; pupils equally reactive to light and accomodation; cranial nerves II-XII grossly normal, moving all 4 extremities, no focal deficits, strength mildly moderately globally decreased secondary to acute presentation. Psychiatric: affect appears fatigued otherwise normal, no acute evidence of depressive or anxiety feelings even following discussions about active miscarriage. - Physical Exam Vitals/I&O's: Vital Signs Temp Pulse Resp BP Pulse Ox 98.2 F 91 16 110/60 99 11/21/19 21:22 11/21/19 21:22 11/21/19 21:22 11/21/19 21:22 11/21/19 21:22 Oxygen Delivery Method Room Air Weight: 138 lb 3.677 oz Body Mass Index (BMI) 23.7 Intake and Output for Last 24 Hours 11/19/19 11/20/19 11/21/19 23:59 23:59 23:59 Intake Total 1000 / 1000 Balance 1000 / 1000 Laboratory Results 11/21/19 18:07: COVID-19 ([facility]) Pending 11/21/19 18:23: WBC 3.8 L, RBC 3.87 L, Hgb 10.9 L, Hct 33.5 L, MCV 86.6, MCH 28.2, MCHC 32.5, RDW Std Deviation 41.4, RDW Coeff of Basil 13.2, Plt Count 232, MPV 11.1, Immature Gran % (Auto) 0.500, Neut % (Auto) 57.7, Lymph % (Auto) 28.5, [place] % (Auto) 12.0 H, Eos % (Auto) 0.8, Baso % (Auto) 0.5, Absolute Neuts (auto) 2.2, Absolute Lymphs (auto) 1.07, Nucleated RBC % 0, Differential Comment SCANNED, Platelet Estimate ADEQUATE, RBC Morphology NORM C+C, ESR 45 H 11/21/19 18:23: PT 13.2, INR 1.1, APTT 31.0 11/21/19 18:23: Sodium 138, Potassium 3.0 L, Chloride 103, Carbon Dioxide 28.0, Anion Gap 7, BUN 10, Creatinine 0.91, Estim Creat Clear Calc 75.93, Est GFR (MDRD) Af Amer 92, Est GFR (MDRD) Non-Af 76, BUN/Creatinine Ratio 11.0, Glucose 102, Calcium 8.4 L, Total Bilirubin 0.40, AST 102 H, ALT 140 H, Alkaline Phosphatase 300 H, C-React Prot Ext Range 127.00 H, Total Protein 7.5, Albumin 3.2, Globulin 4.3 H, Albumin/Globulin Ratio 0.7 L 11/21/19 18:23: D-Dimer Quant (PE/DVT) Pending 11/21/19 19:44: Urine Color Yellow, Urine Clarity Cloudy, Urine pH 5.0, Ur Specific [place] 1.020, Urine Protein 30 H, Urine Glucose (UA) Normal, Urine Ketones 5 H, Urine Occult Blood 10 H, Urine Nitrite Negative, Urine Bilirubin 1 H, Urine Urobilinogen Normal, Ur Leukocyte Esterase 25 H, Urine RBC 0 SEEN, Urine WBC 5-10 SEEN, Ur Squamous Epith Cells 5-10 SEEN, Urine Bacteria 1+, Hyaline Casts 0-5 SEEN, Fine Granular Casts 0-5 SEEN, Urine Mucus 0 SEEN Assessment/Plan All Active Problems (Last Updated 04/28/19 @ 15:04 by Patience Echevarria) Acute viral syndrome (Acute) Transaminitis (Acute) Incomplete miscarriage (Acute) Hypokalemia (Acute) Abnormal ultrasound of breast (Acute) distress during (Resolved) The patient is a 34 y/o F w/ PMHx: Anxiety and Depression, currently reportedly 5 weeks who presents to the [facility] ED on 11/21/19 with history of 1 week of intermittent fevers, body aches, frontal throbbing headaches with some light sensitivity, congestion without rhinorrhea or post-nasal drip, declining HCG w/ vaginal bleeding initially dark brown blood spotting now intermittent bright red blood x 2 days with onset with bleeding LLQ abdominal discomfort described as cramping ~ 3-4/10 in severity following with Dr. Keyes with now 24 hour onset of BL LE blanching erythematous rash, non-pruritic. 1. Fever, malaise, headache, BL LE rash with Acute Transaminitis, concerning for Acute Viral Syndrome, possible Acute Hepatitis, possibly COVID-19: will admit to the COVID unit to be cautious with repeat testing pending, initial on 11/16/2019; however, she had been only symptomatic x 48 to 72 hours at that time, will maintain on oxygen with wean as tolerated to room air, PRN albuterol, HOB, IS parameters w/ pending sputum cultures and urine antigens, will obtain procalcitonin, CPK, Ferritin, LDH, troponin, requested hepatitis panel and UDS. Will await D-Dimer and if elevated would obtain CT chest concurrently with CT A/P given lab abnormalities, abdominal complaints, current ongoing miscarriage. Given no marked WBC elevation or shift, currently afebrile, will defer immediate abx therapy. May need to consider ID consultation or involvement of in home nanny. 2. Active miscarriage: Patient with trending downward HCGs, ongoing vaginal bleeding x 2 days, following with gynecology/OB, CT abdomen pelvis requested to assure no intra-abdominal involvement given LLQ pain and RUQ pain. May necessitation also as noted #1 RUQ US. May need to consider involvement of in home nanny pending imaging. 3. Anxiety and Depression: Continue patient home Effexor regimen. 4. DVT prophylaxis: Low risk but given presentation will await d-dimer and COVID testing, if positive will admit Lovenox. Inpatient E&M: 46275 Init Hosp L3
[2019-11-21 21:51] LABS: D-Dimer Quantitative (DVT/PE) 1.53 FEU/ug/m (0.27-0.49)
--- NOTE | 2019-11-21 22:03 | CT_ITS ---
STUDY: CT ABDOMEN AND PELVIS WITHOUT CONTRAST REASON FOR EXAM: Female, 34 years old. Vaginal bleeding and probable at 5 weeks . Fever and headache left side abdominal pain and elevated d-dimer. History of reflux seizures and prior . RADIATION DOSAGE (If Supplied By Facility): CTDIvol = ( 9.51 ) mGy, DLP = ( 690.78 ) mGycm TECHNIQUE: Transaxial images were obtained from the dome of the diaphragm to the symphysis pubis without oral contrast, and without intravenous contrast. Sagittal and coronal images were reconstructed. Individualized dose optimization techniques were used for this CT. COMPARISON: CTA of the chest, 11/21/2019. FINDINGS: The visualized lung bases are unremarkable. The visualized portions of the heart are within normal limits. There are intact breast implants. The liver is enlarged but uniform in density. Normal gallbladder and extrahepatic biliary system. Mild splenomegaly. Normal pancreas. Normal bilateral adrenal glands. Normal right kidney. Normal left kidney. Normal visualized stomach. Normal small intestine. Normal colon. The appendix is visualized and appears normal. Normal abdominal aorta. Normal inferior vena cava. Normal retroperitoneum. Uterus is anteverted and tilted to the right. It is grossly normal. Abnormal right adnexa. There is a 1.7 x 1.3 x 1.7 cm cyst in the left ovary. Question corpus luteum cyst. No pelvic lymphadenopathy. No free air or free fluid seen within the peritoneal cavity. Umbilical hernia of omental fat. The abdominal wall is otherwise unremarkable. Normal osseous structures. CT/Abdomen/Pelvis W IV Cont ONLY IMPRESSION: 1. Hepatosplenomegaly without mass. 2. Left adnexal cyst. 3. Otherwise normal CT of the abdomen and pelvis. Electronically Signed: Sahca Dillon DO at 23:07 EDT Tel [phone], Service support ,
--- NOTE | 2019-11-21 22:04 | CT_ITS ---
STUDY: CTA CHEST REASON FOR EXAM: Female, 34 years old. 5 weeks . Having vaginal bleeding/. Fever headaches left-sided abdominal pain with elevated d-dimer. History of seizures. RADIATION DOSAGE (If Supplied By Facility): CTDIvol = ( 9.51 ) mGy, DLP = ( 690.78 ) mGycm TECHNIQUE: The examination was performed with the intravenous administration of IV 100mL [id number]-[id number]. Post-processing of the angiographic images was performed, with multiplanar reformation and 3D reconstruction. Individualized dose optimization techniques were used for this CT. COMPARISON: None. FINDINGS: Normal enhancement of the main pulmonary artery and right and left pulmonary arteries. Normal enhancement of the bilateral peripheral pulmonary arteries. There is no demonstrated pulmonary embolism. Normal thoracic aorta and visualized great vessels. There is no demonstrated aortic dissection. Normal heart and pericardium. Normal mediastinum. Normal hilar regions. Normal visualized trachea and bronchi. The lungs are well expanded. Normal pulmonary parenchyma. Normal pleura. Normal chest wall structures. Intact bilateral breast implants. Normal osseous structures. Normal visualized upper abdomen. CT/CTA Chest W/WO Contrast IMPRESSION: Normal CTA chest examination, without a demonstrated pulmonary embolism or arterial dissection. Electronically Signed: Sacha Dillon DO at 23:02 EDT Tel [phone], Service support ,
[2019-11-21] MEDS: 0.9% Normal Saline 1,000 ML 125 ML IV (23:47)
[2019-11-21] MEDS: Famotidine 20 MG Tablet PO (23:52)
[2019-11-21] MEDS: Acetaminophen 325 MG Tablet 650 MG PO (23:53)
[2019-11-22] VITALS (7 sets, daily range): BP systolic 101–113; BP diastolic 56–67; PULSE 78–96; RESP 16–18; TEMP 36.5–38.4; O2SAT 97–100
[2019-11-22 00:02] LABS: Ferritin 195 ng/mL (8-252); LDH 224 U/L (84-246); Magnesium 1.9 mg/dL (1.6-2.6)
[2019-11-22 00:08] LABS: Procalcitonin 0.27 ng/mL (0.00-0.09)
[2019-11-22 00:32] LABS: Internal QC Validated? YES +Cl - CLEAR BKGD; Monotest Negative (Negative)
[2019-11-22 00:36] LABS: Probe Check PASS; Specimen Processing Control PASS
[2019-11-22] MEDS: oxyCODONE 5 MG Tablet PO ×4 (01:54→19:23)
[2019-11-22] MEDS: Morphine 2 MG/ML Syringe IV (03:33)
[2019-11-22] MEDS: proCHLORPERazine 10 MG/2 ML Vial 5 MG IV ×3 (04:45→13:46)
[2019-11-22] MEDS: Enoxaparin 40 MG/0.4 ML Syringe SC (05:29)
[2019-11-22 05:36] LABS: Absolute Lymphocyte Count 0.94 X10^3/uL (0.83-4.51); Absolute Neutrophil Count 2.7 X10^3/uL (2.0-7.7); Basophil# 0.01 X10^3/uL; Basophil% 0.2 % (0-1); Eosinophil# 0.02 X10^3/uL; Eosinophils% 0.5 % (0-5); Hematocrit 27.9 % (37-47); Lymphocyte # 0.94 X10^3/ul (4.0); Lymphocyte % 22.5 % (19-41); Mean Corp Hgb Conc 32.3 g/dL (32-36); Mean Corpuscular Volume 86.9 fL (81-99); Mean Platelet Vol. 10.9 fl (6.2-12.0); Monocyte# 0.47 X10^3/uL; Monocyte% 11.2 % (0-10); NRBC Flagged by Analyzer 0 % (0-5); Neutrophil # 2.69 X10^3/uL (2.7-7.7); Neutrophil % 64.4 % (47-70); Platelet Count 212 K/mm3 (150-450); RBC Distribution Width CV 13.2 % (11.6-14.6); Red Blood Count 3.21 M/mm3 (4.2-5.4); White Blood Count 4.2 K/mm3 (4.4-11.0)
[2019-11-22 05:54] LABS: ALB/GLOB Ratio 0.8 RATIO (0.9-2.4); AST(SGOT) 65 U/L (15-37); Alanine Aminotransfer ALT/SGPT 105 U/L (13-56); Albumin, Serum 2.7 g/dL (3.2-5.0); Alkaline Phosphatase 250 U/L (45-117); Anion Gap 7 (5-15); BUN 8 mg/dL (7-18); BUN/Creat Ratio 11.2 RATIO (10-20); Calcium,Total 7.4 mg/dL (8.5-10.1); Chloride 108 mmol/L (98-107); Creatinine, Serum 0.72 mg/dL (0.55-1.02); EST Glomerular Filtration Rate 99 mL/min (>60); Est Glom Filt Rate - Afr Amer 120 mL/min (>60); Estimated Creatinine Clearance 95.97 ml/min; Globulin 3.6 g/dL (2.2-4.2); Glucose 104 mg/dL (74-106); Potassium 3.3 mmol/L (3.5-5.1); Protein, Total 6.3 g/dL (6.4-8.2); Sodium Level 141 mmol/L (136-145)
--- NOTE | 2019-11-22 05:55 | RAD_ITS ---
STUDY: X-RAY CHEST REASON FOR EXAM: Female, 34 years old. SOB, COUGH, NAUSEA. HX ACTIVE MISCARRIAGE. TECHNIQUE: Single AP portable view of the chest. COMPARISON: None. FINDINGS: There is slight elevation of the right hemidiaphragm. The lungs are clear and expanded. There is no demonstrated pleural abnormality. Normal size heart. Normal mediastinum and josr. Normal visualized pulmonary arteries. Normal visualized aortic arch and descending thoracic aorta. Normal visualized thoracic spine. Normal visualized ribs, clavicles, and shoulders. There is no demonstrated abnormality of the visualized soft tissue structures of the upper abdomen. RAD/Chest 1 View (Portable) IMPRESSION: Minimal right lower lobe atelectasis. Electronically Signed: Skylar Tay MD at 6:15 EDT Tel , Service support ,
[2019-11-22] MEDS: 0.9% Normal Saline 1,000 ML 125 ML IV (06:32)
[2019-11-22] MEDS: Ondansetron 4 MG/2 ML Vial IV (07:04)
--- NOTE | 2019-11-22 07:29 | PN_ITS ---
Patient Problems: Active and Suspected Problems (Last Updated 04/28/19 @ 15:04 by Patience Echevarria) Acute viral syndrome (Acute) Transaminitis (Acute) Incomplete miscarriage (Acute) Hypokalemia (Acute) Erythema nodosum (Acute) Reason for Visit: Suspected acute viral syndrome Subjective: Patient is a 34-year-old lady who is 5 weeks with declining hCG who presented with lower abdominal pain with associated vagina bleeding for 2 days. Patient also experienced high-grade fevers headache photophobia and bilateral lower extremity rash Objective: GENERAL: cooperative HEENT: Atraumatic; EYES; Anicteric, Normal Conjunctiva NECK; supple, normal thyroid, RESPIRATORY: Diminished to auscultation CARDIOVASCULAR: Regular S1 S2, GI: soft, normoactive bowel sounds, : No Renal angle tenderness; EXTREMITIES: No edema, no clubbing, MUSCULOSKELETAL: no muscle waisting NEURO: Awake; no lateralizing signs. SKIN: Nodular rash on both lower extremities PSYCH; Flat affect Vitals/I&O's: Vital Signs Temp Pulse Resp BP Pulse Ox 97.7 F L 81 18 105/61 99 11/22/19 03:40 11/22/19 03:40 11/22/19 03:40 11/22/19 03:40 11/22/19 03:40 Oxygen Delivery Method Room Air Weight: 63.6 kg Body Mass Index (BMI) 24.0 Intake and Output for Last 24 Hours 11/20/19 11/21/19 11/22/19 23:59 23:59 23:59 Intake Total 1000 / 1200 1543.75 / 1543.75 Output Total 450 / 450 Balance 1000 / 1200 1093.75 / 1093.75 Microbiology Past 72 Hours 11/22/19 02:00 Urine, Clean Catch Streptococcus pneumoniae Antigen (M - Final 11/22/19 02:00 Urine, Clean Catch Legionella Antigen - Final Laboratory Results 11/21/19 18:07: COVID-19 ([facility]) Cancelled 11/21/19 18:07: COVID-19 ([facility]) Negative 11/21/19 18:23: WBC 3.8 L, RBC 3.87 L, Hgb 10.9 L, Hct 33.5 L, MCV 86.6, MCH 28.2, MCHC 32.5, RDW Std Deviation 41.4, RDW Coeff of Basil 13.2, Plt Count 232, MPV 11.1, Immature Gran % (Auto) 0.500, Neut % (Auto) 57.7, Lymph % (Auto) 28.5, [place] % (Auto) 12.0 H, Eos % (Auto) 0.8, Baso % (Auto) 0.5, Absolute Neuts (auto) 2.2, Absolute Lymphs (auto) 1.07, Nucleated RBC % 0, Differential Comment SCANNED, Platelet Estimate ADEQUATE, RBC Morphology NORM C+C, ESR 45 H 11/21/19 18:23: PT 13.2, INR 1.1, APTT 31.0 11/21/19 18:23: Sodium 138, Potassium 3.0 L, Chloride 103, Carbon Dioxide 28.0, Anion Gap 7, BUN 10, Creatinine 0.91, Estim Creat Clear Calc 75.93, Est GFR (MDRD) Af Amer 92, Est GFR (MDRD) Non-Af 76, BUN/Creatinine Ratio 11.0, Glucose 102, Calcium 8.4 L, Total Bilirubin 0.40, AST 102 H, ALT 140 H, Alkaline Phosphatase 300 H, C-React Prot Ext Range 127.00 H, Total Protein 7.5, Albumin 3.2, Globulin 4.3 H, Albumin/Globulin Ratio 0.7 L 11/21/19 18:23: D-Dimer Quant (PE/DVT) 1.53 H* 11/21/19 19:44: Urine Color Yellow, Urine Clarity Cloudy, Urine pH 5.0, Ur Specific [place] 1.020, Urine Protein 30 H, Urine Glucose (UA) Normal, Urine Ketones 5 H, Urine Occult Blood 10 H, Urine Nitrite Negative, Urine Bilirubin 1 H, Urine Urobilinogen Normal, Ur Leukocyte Esterase 25 H, Urine RBC 0 SEEN, Urine WBC 5-10 SEEN, Ur Squamous Epith Cells 5-10 SEEN, Urine Bacteria 1+, Hya line Casts 0-5 SEEN, Fine Granular Casts 0-5 SEEN, Urine Mucus 0 SEEN 11/21/19 23:30: Magnesium 1.9, Ferritin 195, Lactate Dehydrogenase 224 11/21/19 23:30: Procalcitonin 0.27 H 11/21/19 23:30: Hepatitis A IgM Ab Pending, Hepatitis A Ab Total Pending, Hep Bs Antigen Pending, Hep B Core Total Ab Pending, Hep B Core IgM Ab Pending 11/21/19 23:30: Monoscreen Negative 11/21/19 23:30: Troponin I < 0.015 11/22/19 02:00: Troponin I < 0.015 11/22/19 05:30: WBC 4.2 L, RBC 3.21 L, Hgb 9.0 L, Hct 27.9 L, MCV 86.9, MCH 28.0, MCHC 32.3, RDW Std Deviation 42.0, RDW Coeff of Basil 13.2, Plt Count 212, MPV 10.9, Immature Gran % (Auto) 1.200 H, Neut % (Auto) 64.4, Lymph % (Auto) 22.5, Slope % (Auto) 11.2 H, Eos % (Auto) 0.5, Baso % (Auto) 0.2, Absolute Neuts (auto) 2.7, Absolute Lymphs (auto) 0.94, Nucleated RBC % 0 11/22/19 05:30: Sodium 141, Potassium 3.3 L, Chloride 108 H, Carbon Dioxide 26.0, Anion Gap 7, BUN 8, Creatinine 0.72, Estim Creat Clear Calc 95.97, Est GFR (MDRD) Af Amer 120, Est GFR (MDRD) Non-Af 99, BUN/Creatinine Ratio 11.2, Glucose 104, Calcium 7.4 L, Total Bilirubin 0.30, AST 65 H, ALT 105 H, Alkaline Phosphatase 250 H, Total Protein 6.3 L, Albumin 2.7 L, Globulin 3.6, Albumin/Globulin Ratio 0.8 L 11/22/19 05:30: Troponin I < 0.015 Current Medications Acetaminophen (Tylenol) 650 mg PO Q6H PRN PRN PRN Reason: Pain Score 1-10/Temp > 100.7 F Last Admin: 11/21/19 23:53 Dose: 650 mg Documented by: Al Hydroxide/Mg Hydroxide (Mylanta Ii) 30 ml PO Q6H PRN PRN PRN Reason: Gastric Burning Albuterol Sulfate (Ventolin Aerosols) 2.5 mg INHALATION Q2H PRN PRN PRN Reason: Dyspnea, wheezing Enoxaparin Sodium (Lovenox) 40 mg SC DAILY@0600 MOLLY Last Admin: 11/22/19 05:29 Dose: 40 mg Documented by: Famotidine (Pepcid) 20 mg PO BID [facility] Last Admin: 11/21/19 23:52 Dose: 20 mg Documented by: Guaifenesin (Robitussin) 20 ml PO Q4H PRN PRN PRN Reason: COUGH Hydralazine HCl (Apresoline Iv) 10 mg IV Q4H PRN PRN PRN Reason: SBP > 160 Sodium Chloride () 1,000 mls @ 125 mls/hr IV .Q8H [facility] Last Admin: 11/22/19 06:32 Dose: 125 mls/hr Documented by: Magnesium Hydroxide (Milk Of Magnesia) 30 ml PO DAILY PRN PRN PRN Reason: Constipation Morphine Sulfate () 2 mg IV Q3H PRN PRN PRN Reason: Pain Score 6-10/10 Last Admin: 11/22/19 03:33 Dose: 2 mg Documented by: Ondansetron HCl (Zofran) 4 mg IV Q8H PRN PRN PRN Reason: NAUSEA/VOMITING Last Admin: 11/22/19 07:04 Dose: 4 mg Documented by: Oxycodone HCl (Oxyir) 5 mg PO Q4H PRN PRN PRN Reason: Pain Score 4-5/10 Last Admin: 11/22/19 01:54 Dose: 5 mg Documented by: Prochlorperazine Edisylate (Compazine Iv) 5 mg IV Q4H PRN PRN PRN Reason: Breakthrough nausea/vomiting Last Admin: 11/22/19 04:45 Dose: 5 mg Documented by: Psyllium Hydrophilic Mucilloid (Metamucil) 1 packet PO DAILY PRN PRN PRN Reason: Constipation Senna/Docusate Sodium (Senokot-S, Guadalupe-Colace) 2 tablet PO BID PRN PRN PRN Reason: Constipation Sodium Chloride () 10 - 40 ml IV UD PRN PRN Reason: SALINE FLUSH Temazepam (Restoril) 15 mg PO QHS PRN PRN PRN Reason: INSOMNIA Throat Lozenges (Cepacol Sore Throat Lozenge) 1 lozenge MUCOUS MEM Q2H PRN PRN PRN Reason: SORE THROAT Venlafaxine HCl (Effexor Xr) 75 mg PO DAILY [facility] STR[facility]KE Vital Signs/Narrative: Vital Signs Temp Pulse Resp BP Pulse Ox 11/22/19 03:40 97.7 F L 81 18 105/61 99 Medical Necessity - Tobacco Use Smoking Status: Never smoker Tobacco Use: Non-smoker, Secondhand Assessment/Plan All Active Problems (Last Updated 04/28/19 @ 15:04 by Patience Echevarria) Acute viral syndrome (Acute) Transaminitis (Acute) Incomplete miscarriage (Acute) Hypokalemia (Acute) Erythema nodosum (Acute) Abnormal ultrasound of breast (Acute) distress during (Resolved) Patient is a 34-year-old lady who is 5 weeks with declining hCG who presented with lower abdominal pain with associated vagina bleeding for 2 days. Patient also experienced high-grade fevers headache photophobia and bilateral lower extremity rash 1. Suspected acute viral syndrome ?Patient has had 2 COVID test all of which have returned negative. She however presented with high-grade fever admitted to the intensive care unit placed under contact and aerosol precautions whilst a repeat COVID-19 ordered 2. Erythema nodosum ?This may be related to a viral exanthem. Patient had associated elevated transaminase acute hepatitis panel ordered for subsequent evaluation 3. Hypokalemia ?Corrected per protocol 4. Acute cystitis ?Had mild pyuria as well as positive leukocyte esterase -Started on Rocephin cultures sent 5. Spontaneous ?After 5 weeks of gestation patient is scheduled to be followed by [facility] 6. DVT prophylaxis ?On Lovenox Inpatient E&M: [id number] [facility] L3
[2019-11-22 08:00] LABS: Magnesium 1.8 mg/dL (1.6-2.6)
[2019-11-22] MEDS: Venlafaxine XR 75 MG Capsule PO (09:11)
[2019-11-22] MEDS: Famotidine 20 MG Tablet PO ×2 (09:11→22:23)
[2019-11-22] MEDS: Acetaminophen 325 MG Tablet 650 MG PO (09:12)
[2019-11-22] MEDS: Ceftriaxone 1 GM/50 ML BAG IV (09:12)
[2019-11-23] MEDS: oxyCODONE 5 MG Tablet PO ×2 (01:58→06:19)
[2019-11-23] MEDS: proCHLORPERazine 10 MG/2 ML Vial 5 MG IV (01:59)
[2019-11-23] MEDS: 0.9% Saline Lock 10 ML Syringe IV ×3 (02:02→11:27)
[2019-11-23 02:09] VITALS: BP 93/54; PULSE 90; RESP 16; TEMP 36.8; O2SAT 98
[2019-11-23 05:44] LABS: Absolute Lymphocyte Count 1.43 X10^3/uL (0.83-4.51); Basophil# 0.02 X10^3/uL; Basophil% 0.5 % (0-1); Eosinophil# 0.02 X10^3/uL; Eosinophils% 0.5 % (0-5); Hematocrit 27.3 % (37-47); Hemoglobin 8.6 g/dL (12.0-15.0); Lymphocyte # 1.43 X10^3/ul (4.0); Lymphocyte % 34.4 % (19-41); Mean Corp Hgb Conc 31.5 g/dL (32-36); Mean Corpuscular Hgb 27.7 pg (27.0-32.0); Mean Corpuscular Volume 87.8 fL (81-99); Mean Platelet Vol. 10.7 fl (6.2-12.0); Monocyte# 0.65 X10^3/uL; Monocyte% 15.6 % (0-10); NRBC Flagged by Analyzer 0 % (0-5); Neutrophil # 1.98 X10^3/uL (2.7-7.7); Neutrophil % 47.6 % (47-70); Platelet Count 249 K/mm3 (150-450); RBC Distribution Width CV 13.2 % (11.6-14.6); RBC Distribution Width SD 42.2 fl (35.1-43.9); Red Blood Count 3.11 M/mm3 (4.2-5.4); White Blood Count 4.2 K/mm3 (4.4-11.0)
[2019-11-23 06:08] LABS: AST(SGOT) 31 U/L (15-37); Alanine Aminotransfer ALT/SGPT 71 U/L (13-56); Albumin, Serum 2.4 g/dL (3.2-5.0); Alkaline Phosphatase 205 U/L (45-117); Anion Gap 4 (5-15); BUN 5 mg/dL (7-18); BUN/Creat Ratio 8.7 RATIO (10-20); Bilirubin, Direct 0.12 mg/dL (0.00-0.30); Calcium,Total 7.2 mg/dL (8.5-10.1); Chloride 109 mmol/L (98-107); Creatinine, Serum 0.58 mg/dL (0.55-1.02); EST Glomerular Filtration Rate 128 mL/min (>60); Est Glom Filt Rate - Afr Amer 155 mL/min (>60); Estimated Creatinine Clearance 119.13 ml/min; Globulin 3.7 g/dL (2.2-4.2); Glucose 101 mg/dL (74-106); Potassium 4.3 mmol/L (3.5-5.1); Protein, Total 6.1 g/dL (6.4-8.2); Sodium Level 139 mmol/L (136-145)
[2019-11-23] MEDS: Enoxaparin 40 MG/0.4 ML Syringe SC (06:08)
[2019-11-23] MEDS: Ondansetron 4 MG/2 ML Vial IV (06:19)
[2019-11-23 07:17] VITALS: O2SAT 98
[2019-11-23 08:55] LABS: Iron 46 ug/dL (50-170); Iron Binding Capacity,Total 219 ug/dL (250-450)
[2019-11-23 09:12] VITALS: BP 94/56; PULSE 80; RESP 18; TEMP 36.7; O2SAT 99
[2019-11-23] MEDS: Ceftriaxone 1 GM/50 ML BAG IV (10:02)
[2019-11-23] MEDS: Magnesium Hydroxide 30 ML UDC PO (10:02)
[2019-11-23] MEDS: Famotidine 20 MG Tablet PO (10:02)
--- NOTE | 2019-11-23 10:45 | CASEMGMT ---
RN ANNABEL Face to Face with patient for initial transition planning/care coordination assessment. RN CM introduced self and role at [facility]. Patient lying in bed, alert and oriented. Patient willing to participate in assessment and is able to answer all questions appropriately. Care providers, pharmacy, and demographics verified. Patient wishes to discharge home, denies need for home health at this time. Patient states she has no further needs or concerns at this time. CM to follow for discharge planning needs that may arise. PCP: Jojo Specialists: Bob Bermudez [facility]acy: [facility] Insurance: [employer] Prescription Benefit: yes Living Will/HPOA: none LNOK: Living Arrangements: Patient lives with in a 2 story home with bed and bath on first floor. Patient is independent at home Transportation: self/ DME/HHC: Patient denies DME or previous HHC Disposition Plan: Patient to discharge home with family support and follow-up plans in place. Savannah LOYA, RN, CM
[2019-11-23] MEDS: Venlafaxine XR 75 MG Capsule PO (11:28)
--- NOTE | 2019-11-23 14:34 | CON.PCM_ITS ---
Problem List (1) Acute viral syndrome Status: Acute Reason for Consult: fever Consulted by: Dr. Burnett History of Present Illness: The patient is a 34 year old F who presented 11/20 with 10 days of fever, night sweats, headache, mild aches, some nausea, some abd pain, vaginal bleeding, and BLE rash. Rash was not tender, not pruritic. 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 Has been masking. No sick contacts. No known covid exposures. She does feed squirrels and raccoons out of her hand regularly at home. She plays in a council with her kids but does not drink the water. She was 5 weeks , now with miscarriage. Was starting to feel a little better, but due to persistent symptoms, came to ED. No change in taste or smell. Admitted on ceftriaxone. Now fever resolved, feeling better, rash nearly gone, LFTs nearly back to normal. Covid neg. No dysuria. Full ROS performed and neg except as noted above. - Medical History Past Medical History (Chronic Problems): Chronic Problems (Last Updated 04/28/19 @ 15:04 by Patience Echevarria) Anxiety and depression (Chronic) Allergies/Adverse Reactions: Allergies amoxicillin Adverse Reaction (Severe, Verified 11/21/19 17:27) rash Home Medications: Ambulatory Orders Medication Instructions Recorded Vits [Prenatabs FA ] 1 tab PO DAILY 01/29/15 Venlafaxine XR [Effexor Xr] 75 mg PO DAILY 01/29/15 Cefdinir [Omnicef [equiv]] 300 mg PO Q12H #6 cap 11/23/19 - Social History Tobacco Use: non-smoker Vital Signs Temp Pulse Resp BP Pulse Ox 98.1 F 80 18 94/56 L 99 11/23/19 09:12 11/23/19 09:12 11/23/19 09:12 11/23/19 09:12 11/23/19 09:12 Oxygen Delivery Method Room Air Weight: 63.6 kg Body Mass Index (BMI) 24.0 Microbiology Past 72 Hours 11/22/19 02:00 Streptococcus pneumoniae Antigen (M - Final Urine, Clean Catch 11/22/19 02:00 Legionella Antigen - Final Urine, Clean Catch Laboratory Tests Past 24 Hrs 11/23/19 11/23/19 11/23/19 05:28 05:28 05:28 WBC 4.2 L RBC 3.11 L Hgb 8.6 L Hct 27.3 L MCV 87.8 MCH 27.7 MCHC 31.5 L RDW Std Deviation 42.2 RDW Coeff of Basil 13.2 Plt Count 249 MPV 10.7 Immature Gran % (Auto) 1.400 H Neut % (Auto) 47.6 Lymph % (Auto) 34.4 [place] % (Auto) 15.6 H Eos % (Auto) 0.5 Baso % (Auto) 0.5 Absolute Neuts (auto) 2.0 Absolute Lymphs (auto) 1.43 Nucleated RBC % 0 Sodium 139 Potassium 4.3 Chloride 109 H Carbon Dioxide 26.0 Anion Gap 4 L BUN 5 L Creatinine 0.58 Estim Creat Clear Calc 119.13 Est GFR (MDRD) Af Amer 155 Est GFR (MDRD) Non-Af 128 BUN/Creatinine Ratio 8.7 L Glucose 101 Calcium 7.2 L Magnesium 2.0 Iron 46 L TIBC 219 L Iron Saturation 21.0 Total Bilirubin 0.30 Direct Bilirubin 0.12 AST 31 ALT 71 H Alkaline Phosphatase 205 H Total Protein 6.1 L Albumin 2.4 L Globulin 3.7 - Other Studies Radiology: [] reviewed Other Studies: [] Route of nutrition/ use of supplements: [] Nutritional Intake: [] IV Site: [] Colon Catheter: [] - Physical Exam General: Alert, Oriented x3, Cooperative, No apparent distress HEENT: Atraumatic, PERRLA, EOMI Neck: Supple, No Nodes Lungs: Clear to auscultation, Normal air movement Cardiovascular: Regular rate, Regular Rhythm Abdomen: Soft, Non Tender, Non-Distended Extremities: No edema Skin: No rashes IV Site: Peripheral, without redness Musculoskeletal: No Tenderness to Palpation of Joints or Extremities Neurological: Cranial nerves II-XII grossly intact - Assessment/Plan Antibiotics: [] Assessment/Plan: [] Active and Suspected Problems (Last Updated 04/28/19 @ 15:04 by Patience Echevarria) Erythema nodosum (Acute) Acute viral syndrome (Acute) Transaminitis (Acute) Incomplete miscarriage (Acute) Hypokalemia (Acute) Low risk for covid. No sick contacts. Rash would be atypical for covid. Seems consistent with nonspecific viral syndrome. LFTs nearly back to normal, fever resolved. Ferritin was normal. No signs or symptoms of lung involvement. Ok for home to complete 3 more days of empiric omnicef. Will follow as needed, thank you, d/w corrections caseworker.
[2019-11-23 15:27] VITALS: BP 88/49; PULSE 98; RESP 18; TEMP 36.7; O2SAT 100
--- NOTE | 2019-11-23 15:32 | PCM.DC ---
- Discharge Diagnoses Current Active Problems: Current Active and Chronic Problems (Last Updated 04/28/19 @ 15:04 by Patience Echevarria) Erythema nodosum (Acute) Acute viral syndrome (Acute) Transaminitis (Acute) Incomplete miscarriage (Acute) Hypokalemia (Acute) Anxiety and depression (Chronic) You will use the following diet at home:: Regular Your food should be the consistency of: Regular Your liquids should be the consistency of: Regular/Thin Discharge Activity: Return to Normal Activity Call your doctor if you observe: Fever of 101 or Higher, Shortness of breath, Dizziness, Fainting spells, Swelling in the ankles, Chest pain, Increased palpitations (irregular heartbeat) Additional Instructions: Obtain a CBC CMP by your PCP to monitor anemia and transaminitis as an outpatient. Hepatitis panel is pending. Allergies/Adverse Reactions: Allergies amoxicillin Adverse Reaction (Severe, Verified 11/21/19 17:27) rash Medications to take at Discharge Vits [Prenatabs FA ] 1 tab PO DAILY 01/29/15 Venlafaxine XR [Effexor Xr] 75 mg PO DAILY 01/29/15 Cefdinir [Omnicef [equiv]] 300 mg PO Q12H #6 cap 11/23/19 The following prescriptions were given: Cefdinir [Omnicef [equiv]] 300 mg PO Q12H #6 cap Transmission Status: Received by [facility] [place] [address] Primary Care Physician: Gil Uribe MD [Primary Care Provider] - Please follow up with your Primary Care Physician in: 3-5 days Test Results: Test results from this visit will be discussed in further detail at your follow-up appointment, if applicable. Please Follow Up With: Hayley Keyes MD When: 1-2 weeks
--- NOTE | 2019-11-23 15:37 | PCM.DC.SUM ---
Discharge Date and Diagnosis - Problem List Patient Problems: Active and Suspected Problems (Last Updated 04/28/19 @ 15:04 by Patience Echevarria) Erythema nodosum (Acute) Acute viral syndrome (Acute) Transaminitis (Acute) Incomplete miscarriage (Acute) Hypokalemia (Acute) Date of Admission: 11/21/19 Date of Discharge: 11/23/19 - Primary Discharge Diagnosis Acute Problems: Active Problems (Last Updated 04/28/19 @ 15:04 by Patience Echevarria) Erythema nodosum (Acute) Acute viral syndrome (Acute) Transaminitis (Acute) Incomplete miscarriage (Acute) Hypokalemia (Acute) - Secondary Discharge Diagnosis Chronic Problems: Chronic Problems (Last Updated 04/28/19 @ 15:04 by Patience Echevarria) Anxiety and depression (Chronic) Hospital Course and Treatment Imaging Results: Clinical Impression(s) from Imaging Studies Abdomen/Pelvis CT 11/21/19 22:03 IMPRESSION: 1. Hepatosplenomegaly without mass. 2. Left adnexal cyst. 3. Otherwise normal CT of the abdomen and pelvis. Electronically Signed: Sacha Dillon DO at 23:07 EDT Tel [phone], Service support , Chest CTA 11/21/19 22:04 IMPRESSION: Normal CTA chest examination, without a demonstrated pulmonary embolism or arterial dissection. Electronically Signed: Sacha Dillon DO at 23:02 EDT Tel [phone], Service support , Chest X-Ray 11/22/19 05:55 IMPRESSION: Minimal right lower lobe atelectasis. Electronically Signed: Skylar Tay MD at 6:15 EDT Tel , Service support , Consults: ID Operations: None Procedures: None Summary of Care Provided: Per HPI: The patient is a 34 y/o F w/ PMHx: Anxiety and Depression, currently reportedly 5 weeks who presents to the [facility] ED on 11/21/19 with history of 1 week of intermittent fevers, body aches, frontal throbbing headaches with some light sensitivity, congestion without rhinorrhea or post-nasal drip, declining HCG w/ vaginal bleeding initially dark brown blood spotting now intermittent bright red blood x 2 days with onset with bleeding LLQ abdominal discomfort described as cramping ~ 3-4/10 in severity following with Dr. Keyes with now 24 hour onset of BL LE blanching erythematous rash, non-pruritic. On examination in the ED patient has also noted RUQ discomfort with palpation although no rebound or guarding. She denies having any ill contacts in the home (, 2 children), no recent ill contacts and reports only 1 shopping grocery store visit weekly masked. She was initially seen in the ED on 11/16/19 with fever and body aches x 3 days duration at that time with COVID testing performed and noted to be negative. She initially refused the CXR. Work-up in the ED included T 98.4, heart rate 82, BP 107/67, respiratory rate 18, 100% on room air, CBC with WC 3.8, hemoglobin 10.9, platelet 232 with no significant shift, no market lymphopenia, ESR 45, coags unremarkable, CMP with potassium 3.0, calcium 8.4, AST/ALT 102/140, alk phos 300, CRP 127, urinalysis not severe appearing, COVID repeat testing pending, blood culture x2 pending per ED. discussed with ED physician and given unclear history will obtain d-dimer with plan for CT abdomen and pelvis given abdominal complaints and active miscarriage but if dimer elevated would also include CT of the chest. Hospital Course: 1. Transaminitis and erythema nodosum from possible viral syndrome versus status post active spontaneous [id number] female who underwent a spontaneous of a 5-week gestation presented to the hospital after having fevers as well as vaginal bleeding for about 2 days. She was started on aggressive IV fluid hydration, as well as antipyretics. Given her fevers, and her headache she had a COVID test done as an outpatient which came back negative, a repeat in-house COVID test also came back negative and infectious disease was consulted who did not feel that her symptomatology was consistent with COVID. She did have a slight positive UA for urinary tract infection and she was started on Rocephin and discharged on Omnicef to complete her course. On the day of discharge her transaminitis was improving and her erythema nodosum had almost completely resolved and was no longer painful. She had been afebrile for over 24 hours and she was ready to go home. I do request that she follow-up with her PCP to obtain a CMP to follow her transaminitis as well as a CBC for her anemia, a hepatitis panel is pending currently in the hospital. She did come in anemic at 10.9 and she went down to 8.6, this is likely dilutional as she received over 8 L of IV fluids. A ferritin was obtained which was normal her iron saturation was 21, her iron level was 46 and her TIBC was 219 and she was not microcytic. She also need to follow-up with MECHANICAL PRODUCT ENGINEER for the spontaneous as well. I did discuss the plan with discharge and she expressed understanding of the risks and benefits of going home today. Prior to discharge she did feel little bit lightheaded when she was up and was also hypotensive to systolic of 88. She says that she normally runs low but this was a little low for her. No intervention was performed other than having her sit upright to acclimate and her blood pressure was rechecked after about an hour and a half and her systolic was over 100 and she was no longer dizzy. She was given the option to stay however she would prefer to go home today. She will need to follow-up with her PCP as previously stated. 2. UTI-no urine culture was obtained therefore we will treat empirically. She was started on Rocephin and has improved therefore will transition to Omnicef on discharge. Patient Problems: Active and Suspected Problems (Last Updated 04/28/19 @ 15:04 by Patience Echevarria) Erythema nodosum (Acute) Acute viral syndrome (Acute) Transaminitis (Acute) Incomplete miscarriage (Acute) Hypokalemia (Acute) - Physical Exam Vitals/I&O's: Vital Signs Temp Pulse Resp BP Pulse Ox 98.0 F 98 18 88/49 L 100 11/23/19 15:27 11/23/19 15:27 11/23/19 15:27 11/23/19 15:27 11/23/19 15:27 Oxygen Delivery Method Room Air Weight: 140 lb 3.424 oz Body Mass Index (BMI) 24.0 Intake and Output for Last 24 Hours 11/21/19 11/22/19 11/23/19 23:59 23:59 23:59 Intake Total 1000 / 1200 4397.92 / 5397.92 3264.50 / 3264.50 Output Total 450 / 450 Balance 1000 / 1200 3947.92 / 4947.92 3264.50 / 3264.50 General: Alert, Oriented x3, Cooperative, No apparent distress HEENT: Atraumatic, PERRLA, EOMI, Normocephalic Oral: Moist Mucosa Neck: Supple, No JVD Lungs: Clear to auscultation, Normal air movement, No rhonchi, No wheeze, No rales, Diminished Cardiovascular: Regular rate, Regular Rhythm, Normal S1, Normal S2, No murmurs Abdomen: Soft, Non Tender, Non-Distended, No Hepato-splenomegaly Extremities: No edema, Capillary Refill Less than 3 Seconds Skin: - - Circular red patch on the medial aspect of her left ankle/calf, nontender, slightly nodular though improved Neurological: Neuro grossly intact, Sensory exam intact to light touch and pain Psych/Mental Status: Normal Affect, Appropriate Microbiology Past 72 Hours 11/22/19 02:00 Urine, Clean Catch Streptococcus pneumoniae Antigen (M - Final 11/22/19 02:00 Urine, Clean Catch Legionella Antigen - Final Laboratory Results 11/23/19 05:28: WBC 4.2 L, RBC 3.11 L, Hgb 8.6 L, Hct 27.3 L, MCV 87.8, MCH 27.7, MCHC 31.5 L, RDW Std Deviation 42.2, RDW Coeff of Basil 13.2, Plt Count 249, MPV 10.7, Immature Gran % (Auto) 1.400 H, Neut % (Auto) 47.6, Lymph % (Auto) 34.4, Davis % (Auto) 15.6 H, Eos % (Auto) 0.5, Baso % (Auto) 0.5, Absolute Neuts (auto) 2.0, Absolute Lymphs (auto) 1.43, Nucleated RBC % 0 11/23/19 05:28: Sodium 139, Potassium 4.3, Chloride 109 H, Carbon Dioxide 26.0, Anion Gap 4 L, BUN 5 L, Creatinine 0.58, Estim Creat Clear Calc 119.13, Est GFR (MDRD) Af Amer 155, Est GFR (MDRD) Non-Af 128, BUN/Creatinine Ratio 8.7 L, Glucose 101, Calcium 7.2 L, Magnesium 2.0, Total Bilirubin 0.30, Direct Bilirubin 0.12, AST 31, ALT 71 H, Alkaline Phosphatase 205 H, Total Protein 6.1 L, Albumin 2.4 L, Globulin 3.7 11/23/19 05:28: Iron 46 L, TIBC 219 L, Iron Saturation 21.0 Current Medications Acetaminophen (Tylenol) 650 mg PO Q6H PRN PRN PRN Reason: Pain Score 1-10/Temp > 100.7 F Last Admin: 11/22/19 09:12 Dose: 650 mg Documented by: Al Hydroxide/Mg Hydroxide (Mylanta Ii) 30 ml PO Q6H PRN PRN PRN Reason: Gastric Burning Albuterol Sulfate (Ventolin Aerosols) 2.5 mg INHALATION Q2H PRN PRN PRN Reason: Dyspnea, wheezing Enoxaparin Sodium (Lovenox) 40 mg SC DAILY@0600 [facility] Last Admin: 11/23/19 06:08 Dose: 40 mg Documented by: Famotidine (Pepcid) 20 mg PO BID [facility] Last Admin: 11/23/19 10:02 Dose: 20 mg Documented by: Guaifenesin (Robitussin) 20 ml PO Q4H PRN PRN PRN Reason: COUGH Hydralazine HCl (Apresoline Iv) 10 mg IV Q4H PRN PRN PRN Reason: SBP > 160 Ceftriaxone Sodium (Rocephin) 1 gm in 50 mls @ 100 mls/hr IV Q24 [facility] Last Infusion: 11/23/19 10:35 Dose: Infused Documented by: Magnesium Hydroxide (Milk Of Magnesia) 30 ml PO DAILY PRN PRN PRN Reason: Constipation Last Admin: 11/23/19 10:02 Dose: 30 ml Documented by: Morphine Sulfate () 2 mg IV Q3H PRN PRN PRN Reason: Pain Score 6-10/10 Last Admin: 11/22/19 03:33 Dose: 2 mg Documented by: Ondansetron HCl (Zofran) 4 mg IV Q8H PRN PRN PRN Reason: NAUSEA/VOMITING Last Admin: 11/23/19 06:19 Dose: 4 mg Documented by: Oxycodone HCl (Oxyir) 5 mg PO Q4H PRN PRN PRN Reason: Pain Score 4-5/10 Last Admin: 11/23/19 06:19 Dose: 5 mg Documented by: Potassium [facility] ([facility]Dur) [facility] Last Admin: 11/23/19 10:01 Dose: 20 meq Documented by: Prochlorperazine Edisylate (Compazine Iv) 5 mg IV Q4H PRN PRN PRN Reason: Breakthrough nausea/vomiting Last Admin: 11/23/19 01:59 Dose: 5 mg Documented by: Psyllium Hydrophilic Mucilloid (Metamucil) 1 packet PO DAILY PRN PRN PRN Reason: Constipation Senna/Docusate Sodium (Senokot-S, Guadalupe-Colace) 2 tablet PO BID PRN PRN PRN Reason: Constipation Sodium Chloride () 10 - 40 ml IV UD PRN PRN Reason: SALINE FLUSH Last Admin: 11/23/19 11:27 Dose: 10 ml Documented by: Temazepam (Restoril) 15 mg PO QHS PRN PRN PRN Reason: INSOMNIA Throat Lozenges (Cepacol Sore Throat Lozenge) 1 lozenge MUCOUS MEM Q2H PRN PRN PRN Reason: SORE THROAT Venlafaxine HCl (Effexor Xr) 75 mg PO DAILY [facility] Last Admin: 11/23/19 11:28 Dose: 75 mg Documented by: Discharge Activity: Return to Normal Activity Call your doctor if you observe: Fever of 101 or Higher, Shortness of breath, Dizziness, Fainting spells, Swelling in the ankles, Chest pain, Increased palpitations (irregular heartbeat) Home Medications: Medications to take at Discharge Vits [Prenatabs FA ] 1 tab PO DAILY 01/29/15 Venlafaxine XR [Effexor Xr] 75 mg PO DAILY 01/29/15 Cefdinir [Omnicef [equiv]] 300 mg PO Q12H #6 cap 11/23/19 Following Prescriptions Were Given to Patient: Cefdinir [Omnicef [equiv]] 300 mg PO Q12H #6 cap Transmission Status: Received by MAYRA LOPEZ[address] Primary Care Physician: Gil Uribe MD [Primary Care Provider] - Please follow up with your Primary Care Physician in: 3-5 days Please Follow Up With: Hayley Keyes MD When: 1-2 weeks Disposition: Home Minutes spent on discharge:: 35 Patient Condition:: Stable Medical Necessity - Tobacco Use Smoking Status: Never smoker Tobacco Use: Non-smoker, Secondhand Meaningful Use Info Meaningful Use Diagnoses (Choose all that apply): None applicable Inpatient E&M: 71736 Disch Hosp
[2019-11-23 17:16] VITALS: BP 101/62; PULSE 60; RESP 18; TEMP 36.9; O2SAT 100
[2019-11-24 06:07] LABS: HEPATITIS B SURFACE AG Negative (Negative); Hepatitis A AB, Total Negative (Negative); Hepatitis A IgM Antibody Negative (Negative); Hepatitis B Core AB IgM Negative (Negative); Hepatitis B Core Ab Total Negative (Negative); Hepatitis C Ab <0.1 s/co ratio (0.0-0.9)
[2019-11-24 09:32] LABS: Hep B Surface Antibodies Reactive (.)
== END 2019-11-23 17:50 | disposition home or self-care (01) | DRG 998 ==
LOC: ED 18:33 → ICU 11-22 07:09 → MS3 11-23 08:08 → ICU 11-23 13:03 → MS3 11-23 13:03
PROVIDERS: Internal Medicine; Admitting Provider Family Medicine; Emergency Provider Emergency Medicine; PCP Family Medicine; Visit Provider Family Medicine
DX: O99.72 Diseases of the skin and subcutaneous tissue complicating childbirth (principal); O98.53 Other viral diseases complicating the puerperium; O03.38 Urinary tract infection following incomplete spontaneous abortion; L52 Erythema nodosum; F32.9 Major depressive disorder, single episode, unspecified; F41.9 Anxiety disorder, unspecified; B34.9 Viral infection, unspecified; Z3A.01 Less than 8 weeks gestation of pregnancy; E87.6 Hypokalemia; O03.33 Metabolic disorder following incomplete spontaneous abortion; R74.0 Nonspecific elevation of levels of transaminase and lactic acid dehydrogenase [LDH]; O99.341 Other mental disorders complicating pregnancy, first trimester; O99.281 Endocrine, nutritional and metabolic diseases complicating pregnancy, first trimester
CPT/HCPCS: 71045; 71275; 74177; 80048; 80053; 80076; 81001; 82728; 83540; 83550; 83615; 83735; 84145; 84484; 85025; 85379; 85610; 85652; 85730; 86140; 86308; 86704; 86705; 86706; 86708; 86709; 86803; 87040; 87340; 87449; 87635; 93005; 94799; 97802; 99251; 99284; J7030; Q9967; A4216; G0463; J2405; U0003

== ENCOUNTER → 2019-11-27 10:30 | Outpatient (CLI) | payer OTHER, SELFPAY ==
[2019-11-21 23:29] VITALS: BMI 24.0
[2019-11-27 12:11] LABS: Absolute Lymphocyte Count 2.06 X10^3/uL (0.83-4.51); Absolute Neutrophil Count 4.9 X10^3/uL (2.0-7.7); Basophil# 0.07 X10^3/uL; Basophil% 0.8 % (0-1); Eosinophils% 1.2 % (0-5); Hematocrit 37.4 % (37-47); Hemoglobin 11.7 g/dL (12.0-15.0); Lymphocyte # 2.06 X10^3/ul (4.0); Lymphocyte % 24.8 % (19-41); Mean Corp Hgb Conc 31.3 g/dL (32-36); Mean Corpuscular Hgb 27.9 pg (27.0-32.0); Mean Platelet Vol. 10.4 fl (6.2-12.0); Monocyte# 0.89 X10^3/uL; Monocyte% 10.7 % (0-10); NRBC Flagged by Analyzer 0 % (0-5); Neutrophil # 4.91 X10^3/uL (2.7-7.7); Neutrophil % 59.1 % (47-70); POSITIVE MORPHOLOGY YES; Platelet Count 579 K/mm3 (150-450); RBC Distribution Width CV 12.9 % (11.6-14.6); RBC Distribution Width SD 41.2 fl (35.1-43.9); White Blood Count 8.3 K/mm3 (4.4-11.0)
[2019-11-27 12:29] LABS: Differential Indicated SCAN CRITERIA MET
[2019-11-27 12:33] LABS: AST(SGOT) 40 U/L (15-37); Alanine Aminotransfer ALT/SGPT 83 U/L (13-56); Albumin, Serum 3.5 g/dL (3.2-5.0); Alkaline Phosphatase 193 U/L (45-117); Bilirubin, Direct 0.09 mg/dL (0.00-0.30); Globulin 4.4 g/dL (2.2-4.2); Protein, Total 7.9 g/dL (6.4-8.2)
== END ==
PROVIDERS: PCP Family Medicine; Referring Provider Family Medicine; Visit Provider Family Medicine
DX: D64.9 Anemia, unspecified (principal); R74.8 Abnormal levels of other serum enzymes
CPT/HCPCS: 36415; 80076; 85025

== ENCOUNTER → 2019-11-30 10:08 | Outpatient (CLI) | payer OTHER, SELFPAY ==
[2019-11-21 23:29] VITALS: BMI 24.0
[2019-11-30 12:13] LABS: hCG Titer Quant., Serum 2 mIU/mL (1-3)
== END ==
PROVIDERS: PCP Family Medicine; Referring Provider Obstetrics & Gynecology; Visit Provider Obstetrics & Gynecology
DX: O02.1 Missed abortion (principal); R74.8 Abnormal levels of other serum enzymes; D64.9 Anemia, unspecified
CPT/HCPCS: 36415; 84702

== ENCOUNTER → 2019-12-21 13:56 | Outpatient (CLI) | payer OTHER, SELFPAY ==
[2019-12-10 11:37] VITALS: BMI 24.0
[2019-12-21 15:53] LABS: Follicle Stimulating Hormone 7.3 mIU/mL
== END ==
PROVIDERS: PCP Family Medicine; Referring Provider Obstetrics & Gynecology; Visit Provider Obstetrics & Gynecology
DX: N97.9 Female infertility, unspecified (principal)
CPT/HCPCS: 36415; 82670; 83001

== ENCOUNTER → 2019-12-24 10:27 | Outpatient (CLI) | payer OTHER, SELFPAY ==
[2019-12-10 11:37] VITALS: BMI 24.0
[2019-12-24 11:53] LABS: Absolute Lymphocyte Count 2.21 X10^3/uL (0.83-4.51); Absolute Neutrophil Count 3.9 X10^3/uL (2.0-7.7); Basophil# 0.05 X10^3/uL; Basophil% 0.7 % (0-1); Eosinophils% 1.5 % (0-5); Hematocrit 36.7 % (37-47); Hemoglobin 11.5 g/dL (12.0-15.0); Lymphocyte # 2.21 X10^3/ul (4.0); Lymphocyte % 32.7 % (19-41); Mean Corp Hgb Conc 31.3 g/dL (32-36); Mean Corpuscular Hgb 27.6 pg (27.0-32.0); Monocyte% 7.4 % (0-10); NRBC Flagged by Analyzer 0 % (0-5); Neutrophil # 3.86 X10^3/uL (2.7-7.7); Neutrophil % 57.3 % (47-70); Platelet Count 270 K/mm3 (150-450); RBC Distribution Width CV 13.3 % (11.6-14.6); RBC Distribution Width SD 43.2 fl (35.1-43.9); Red Blood Count 4.17 M/mm3 (4.2-5.4); White Blood Count 6.8 K/mm3 (4.4-11.0)
[2019-12-24 12:22] LABS: Vitamin B12 1359 pg/mL (211-911)
[2019-12-24 12:47] LABS: ALB/GLOB Ratio 1.1 RATIO (0.9-2.4); AST(SGOT) 17 U/L (15-37); Alanine Aminotransfer ALT/SGPT 18 U/L (13-56); Albumin, Serum 4.2 g/dL (3.2-5.0); Alkaline Phosphatase 75 U/L (45-117); Anion Gap 5 (5-15); BUN 12 mg/dL (7-18); BUN/Creat Ratio 15.4 RATIO (10-20); Chloride 107 mmol/L (98-107); Creatinine, Serum 0.78 mg/dL (0.55-1.02); EST Glomerular Filtration Rate 90 mL/min (>60); Est Glom Filt Rate - Afr Amer 109 mL/min (>60); Ferritin 42 ng/mL (8-252); GGTP 46 U/L (5-55); Globulin 3.8 g/dL (2.2-4.2); Glucose 78 mg/dL (74-106); Iron 60 ug/dL (50-170); Iron Binding Capacity,Total 349 ug/dL (250-450); Potassium 3.7 mmol/L (3.5-5.1); Sodium Level 140 mmol/L (136-145)
== END ==
PROVIDERS: PCP Family Medicine; Referring Provider Family Medicine; Visit Provider Family Medicine
DX: D64.9 Anemia, unspecified (principal); R74.8 Abnormal levels of other serum enzymes
CPT/HCPCS: 36415; 80053; 82607; 82728; 82746; 82977; 83540; 83550; 85025

== ENCOUNTER → 2020-03-17 10:07 | Outpatient (CLI) | payer OTHER, SELFPAY ==
[2019-12-10 11:37] VITALS: BMI 24.0
[2020-03-17 12:14] LABS: Absolute Lymphocyte Count 1.68 X10^3/uL (0.83-4.51); Absolute Neutrophil Count 2.9 X10^3/uL (2.0-7.7); Basophil# 0.03 X10^3/uL; Basophil% 0.6 % (0-1); Eosinophil# 0.07 X10^3/uL; Eosinophils% 1.4 % (0-5); Hematocrit 39.4 % (37-47); Hemoglobin 12.4 g/dL (12.0-15.0); Lymphocyte # 1.68 X10^3/ul (4.0); Lymphocyte % 32.7 % (19-41); Mean Corp Hgb Conc 31.5 g/dL (32-36); Mean Corpuscular Hgb 28.2 pg (27.0-32.0); Mean Corpuscular Volume 89.5 fL (81-99); Mean Platelet Vol. 12.2 fl (6.2-12.0); Monocyte% 7.8 % (0-10); NRBC Flagged by Analyzer 0 % (0-5); Neutrophil # 2.93 X10^3/uL (2.7-7.7); Neutrophil % 57.1 % (47-70); Platelet Count 244 K/mm3 (150-450); RBC Distribution Width CV 12.1 % (11.6-14.6); RBC Distribution Width SD 40.1 fl (35.1-43.9); White Blood Count 5.1 K/mm3 (4.4-11.0)
[2020-03-17 12:28] LABS: Ferritin 23 ng/mL (8-252); Iron 58 ug/dL (50-170); Iron Binding Capacity,Total 343 ug/dL (250-450)
== END ==
PROVIDERS: PCP Family Medicine; Referring Provider Family Medicine; Visit Provider Family Medicine
DX: D64.9 Anemia, unspecified (principal)
CPT/HCPCS: 36415; 82728; 83540; 83550; 85025

== ENCOUNTER → 2020-05-17 16:09 | Outpatient (CLI) | payer OTHER, SELFPAY ==
[2019-12-10 11:37] VITALS: BMI 24.0
[2020-05-17 17:19] LABS: hCG Titer Quant., Serum 569 mIU/mL (1-3)
== END ==
PROVIDERS: PCP Family Medicine; Referring Provider Obstetrics & Gynecology; Visit Provider Obstetrics & Gynecology
DX: O20.0 Threatened abortion (principal); Z3A.00 Weeks of gestation of pregnancy not specified
CPT/HCPCS: 36415; 84702

== ENCOUNTER → 2020-05-19 10:18 | Outpatient (CLI) | payer OTHER, SELFPAY ==
[2019-12-10 11:37] VITALS: BMI 24.0
[2020-05-19 11:59] LABS: hCG Titer Quant., Serum 1356 mIU/mL (1-3)
== END ==
PROVIDERS: PCP Family Medicine; Referring Provider Nurse Practitioner Women's Health; Visit Provider Nurse Practitioner Women's Health
DX: O20.0 Threatened abortion (principal); Z3A.00 Weeks of gestation of pregnancy not specified
CPT/HCPCS: 36415; 84702

== ENCOUNTER → 2020-05-19 16:15 | Outpatient (CLI) | payer OTHER, SELFPAY ==
[2019-12-10 11:37] VITALS: BMI 24.0
--- NOTE | 2020-05-19 16:16 | US_ITS ---
STUDY: FIRST TRIMESTER OBSTETRICAL ULTRASOUND REASON FOR EXAM: Female, 34 years old BROWN SPOTTING R/O ECTOPIC LMP: 04/10/2020 TECHNIQUE: Transvaginal TECHNICAL QUALITY: Adequate. PRIOR ULTRASOUND: None. FINDINGS: There is visualization of a single gestational sac in a normal intrauterine position. The mean sac diameter (MSD) measures 4 mm, indicating an estimated gestational age (EGA) of 5 weeks, 1 days. The gestational sac shape is within normal limits. There is no demonstrated yolk sac.. The placenta is non-visualized. There is no demonstrated embryo ( pole).. The estimated gestation age (EGA) by LMP is 5 weeks, 4 days. The estimated date of delivery (JOHN) by LMP is 01/15/2021. The estimated gestation age (EGA) by US is 5 weeks, 1 days. The estimated date of delivery (JOHN) by US is 01/18/2021. The uterus measures 9.7 x 5.9 x 4.7 cm. There is no demonstrated uterine fibroid. The cervix is closed. The right ovary measures 3.7 x 1.8 x 2.1 cm. There is no right ovarian cyst. There is no visualized right adnexal mass or complex lesion. The left ovary measures 3.6 x 3.2 x 3.2 cm. There is no left ovarian cyst. There is no visualized left adnexal mass or complex lesion. There is no fluid in the cul de sac. US/Transvaginal w/Preg US IMPRESSION: 4 mm anechoic area within the endometrial cavity. Differential diagnosis includes an early intrauterine , early ectopic with a pseudogestational sac, or an incomplete . Correlation with serial beta Hg measurements is recommended. Electronically Signed: Jem Tomas MD at 16:55 EST Tel , Service support ,
== END ==
PROVIDERS: PCP Family Medicine; Referring Provider Obstetrics & Gynecology; Visit Provider Obstetrics & Gynecology
DX: O20.0 Threatened abortion (principal); Z3A.00 Weeks of gestation of pregnancy not specified
CPT/HCPCS: 76817

== ENCOUNTER → 2020-06-02 09:25 | Outpatient (CLI) | payer OTHER, SELFPAY ==
[2019-12-10 11:37] VITALS: BMI 24.0
--- NOTE | 2020-06-02 09:26 | US_ITS ---
STUDY: FIRST TRIMESTER OBSTETRICAL ULTRASOUND REASON FOR EXAM: Female, 35 years old viability LMP: 04/13/2020 TECHNIQUE: Transvaginal TECHNICAL QUALITY: Adequate. PRIOR ULTRASOUND: Comparison is made with prior examination dated 05/19/2020. FINDINGS: There is visualization of a single gestational sac in a normal intrauterine position. The mean sac diameter (MSD) measures 2.02 cm, indicating an estimated gestational age (EGA) of 7 weeks, 0 days. The gestational sac shape is within normal limits. There is a visualized yolk sac. The yolk sac measures 3.4 mm. The placenta is non-visualized. There is visualization of a live embryo. The crown-rump length (CRL) measures 6 mm, indicating an estimated gestational age (EGA) of 6 weeks, 3 days. There is demonstrated cardiac activity with a heart rate of 112 bpm. The estimated gestation age (EGA) by LMP is 7 weeks, 1 days. The estimated date of delivery (JOHN) by LMP is 01/18/2021. The estimated gestation age (EGA) by US is 6 weeks, 5 days. The estimated date of delivery (JOHN) by US is 01/21/2021. The uterus measures 9.9 cm x 6.7 cm x 4.9 cm. There is no demonstrated uterine fibroid. The cervix is closed. The right ovary measures 3.2 cm x 2.4 cm x 1.2 cm. There is no right ovarian cyst. There is no visualized right adnexal mass or complex lesion. The left ovary measures 3.6 cm x 2.6 cm x 2.6 cm. There is no left ovarian cyst. There is no visualized left adnexal mass or complex lesion. There is no fluid in the cul de sac. US/Transvaginal w/Preg US IMPRESSION: Single live uterine gestation with a mean gestational age of 6 weeks and 5 days. Electronically Signed: Jamarcus Lloyd MD at 15:33 EST , Service support ,
== END ==
PROVIDERS: PCP Family Medicine; Referring Provider Obstetrics & Gynecology; Visit Provider Obstetrics & Gynecology
DX: Z34.90 Encounter for supervision of normal pregnancy, unspecified, unspecified trimester (principal)
CPT/HCPCS: 76817

== ENCOUNTER → 2020-06-13 | Outpatient (CLI) | payer OTHER, SELFPAY ==
[2020-06-13 09:30] VITALS: BMI 25.0
[2020-06-13 18:08] LABS: Amphetamine Urine VISTA NEGATIVE (<1000 ng/mL); Barbiturate Urine VISTA NEGATIVE (< 200 ng/mL); Benzodiazepine Urine VISTA NEGATIVE (< 200 ng/mL); Cocaine Urine VISTA NEGATIVE (< 300 ng/mL); Ecstacy Urine VISTA NEGATIVE (< 500 ng/mL); Methadone Urine VISTA NEGATIVE (< 300 ng/mL); PCP Urine VISTA NEGATIVE (< 25 ng/mL); THC Urine VISTA NEGATIVE (< 50 ng/mL); Vista UDS pH Range 5
[2020-06-16 03:07] LABS: Chlamydia By Nucleic Acid AMP Negative (Negative)
[2020-06-16 10:12] LABS: Gonococcus By Nucleic Acid AMP Negative (Negative)
== END | disposition home or self-care (01) ==
LOC: LABSPEC 16:28
PROVIDERS: PCP Family Medicine; Referring Provider Obstetrics & Gynecology; Visit Provider Obstetrics & Gynecology
DX: Z34.90 Encounter for supervision of normal pregnancy, unspecified, unspecified trimester (principal); Z12.4 Encounter for screening for malignant neoplasm of cervix
CPT/HCPCS: 80307; 87086; 87088; 87491; 87591

== ENCOUNTER → 2020-06-15 | Outpatient (CLI) | payer OTHER, SELFPAY ==
[2020-06-13 09:30] VITALS: BMI 25.0
[2020-06-21 19:26] LABS: HPV APTIMA, High Risk Negative (Negative)
== END | disposition home or self-care (01) ==
LOC: LABSPEC 16:04
PROVIDERS: PCP Family Medicine; Referring Provider Obstetrics & Gynecology; Visit Provider Obstetrics & Gynecology
DX: Z12.4 Encounter for screening for malignant neoplasm of cervix (principal)
CPT/HCPCS: 87624; 88175; G0145

== ENCOUNTER → 2020-06-27 12:33 | Outpatient (CLI) | payer OTHER, SELFPAY ==
[2020-06-13 09:30] VITALS: BMI 25.0
[2020-06-27 15:12] LABS: Absolute Lymphocyte Count 1.72 X10^3/uL (0.83-4.51); Absolute Neutrophil Count 7.6 X10^3/uL (2.0-7.7); Basophil# 0.04 X10^3/uL; Basophil% 0.4 % (0-1); Eosinophil# 0.08 X10^3/uL; Eosinophils% 0.8 % (0-5); Hematocrit 38.4 % (37-47); Hemoglobin 12.2 g/dL (12.0-15.0); Lymphocyte # 1.72 X10^3/ul (4.0); Lymphocyte % 16.9 % (19-41); Mean Corp Hgb Conc 31.8 g/dL (32-36); Mean Corpuscular Hgb 28.7 pg (27.0-32.0); Mean Corpuscular Volume 90.4 fL (81-99); Mean Platelet Vol. 12.4 fl (6.2-12.0); Monocyte# 0.67 X10^3/uL; Monocyte% 6.6 % (0-10); NRBC Flagged by Analyzer 0 % (0-5); Neutrophil # 7.62 X10^3/uL (2.7-7.7); Neutrophil % 74.7 % (47-70); Platelet Count 262 K/mm3 (150-450); RBC Distribution Width CV 12.5 % (11.6-14.6); Red Blood Count 4.25 M/mm3 (4.2-5.4); White Blood Count 10.2 K/mm3 (4.4-11.0)
[2020-06-27 15:25] LABS: ALB/GLOB Ratio 0.9 RATIO (0.9-2.4); AST(SGOT) 18 U/L (15-37); Alanine Aminotransfer ALT/SGPT 21 U/L (13-56); Albumin, Serum 3.7 g/dL (3.2-5.0); Alkaline Phosphatase 77 U/L (45-117); Anion Gap 7 (5-15); BUN 11 mg/dL (7-18); BUN/Creat Ratio 17.4 RATIO (10-20); Calcium,Total 9.2 mg/dL (8.5-10.1); Chloride 105 mmol/L (98-107); Creatinine, Serum 0.63 mg/dL (0.55-1.02); EST Glomerular Filtration Rate 115 mL/min (>60); Est Glom Filt Rate - Afr Amer 139 mL/min (>60); Glucose 78 mg/dL (74-106); Potassium 3.6 mmol/L (3.5-5.1); Protein, Total 7.7 g/dL (6.4-8.2); Sodium Level 139 mmol/L (136-145)
[2020-06-27 16:02] LABS: HIV - WCH Non-Reactive (Nonreactive); Hepatitis B Surface Antigen Non-Reactive (Nonreactive); Hepatitis C Antibody Non-Reactive (Nonreactive); Rubella IgG Reactive (Nonreactive); Syphilis Antibodies Non-reactive
== END ==
PROVIDERS: PCP Family Medicine; Referring Provider Obstetrics & Gynecology; Visit Provider Obstetrics & Gynecology
DX: Z34.90 Encounter for supervision of normal pregnancy, unspecified, unspecified trimester (principal); E87.6 Hypokalemia
CPT/HCPCS: 80053; 85025; 86703; 86762; 86780; 86803; 86850; 86900; 86901; 87340

== ENCOUNTER → 2020-11-03 08:26 | Outpatient (CLI) | payer OTHER, SELFPAY ==
[2020-10-05 11:01] VITALS: BMI 27.7
[2020-11-03 08:43] LABS: Absolute Lymphocyte Count 1.65 X10^3/uL (0.83-4.51); Absolute Neutrophil Count 8.2 X10^3/uL (2.0-7.7); Basophil# 0.03 X10^3/uL; Basophil% 0.3 % (0-1); Eosinophil# 0.29 X10^3/uL; Eosinophils% 2.7 % (0-5); Hematocrit 29.6 % (37-47); Hemoglobin 9.4 g/dL (12.0-15.0); Lymphocyte # 1.65 X10^3/ul (0.83-4.51); Lymphocyte % 15.2 % (19-41); Mean Corp Hgb Conc 31.8 g/dL (32-36); Mean Corpuscular Hgb 28.5 pg (27.0-32.0); Mean Corpuscular Volume 89.7 fL (81-99); Mean Platelet Vol. 10.7 fl (6.2-12.0); Monocyte# 0.58 X10^3/uL; Monocyte% 5.3 % (0-10); NRBC Flagged by Analyzer 0 % (0-5); Neutrophil # 8.18 X10^3/uL (2.7-7.7); Neutrophil % 75.1 % (47-70); Platelet Count 241 K/mm3 (150-450); RBC Distribution Width CV 14.2 % (11.6-14.6); RBC Distribution Width SD 45.7 fl (35.1-43.9); White Blood Count 10.9 K/mm3 (4.4-11.0)
[2020-11-03 08:52] LABS: Glucose Challenge Gest 1H 50g 128 mg/dL (70-140)
== END ==
PROVIDERS: PCP Family Medicine; Referring Provider Obstetrics & Gynecology; Visit Provider Obstetrics & Gynecology
DX: Z34.80 Encounter for supervision of other normal pregnancy, unspecified trimester (principal); Z13.1 Encounter for screening for diabetes mellitus
CPT/HCPCS: 36415; 82950; 85025

== ENCOUNTER → 2020-12-15 10:55 | Outpatient (CLI) | payer OTHER, SELFPAY ==
[2020-12-15 11:10] LABS: Absolute Lymphocyte Count 2.27 X10^3/uL (0.83-4.51); Absolute Neutrophil Count 9.4 X10^3/uL (2.0-7.7); Basophil# 0.04 X10^3/uL; Basophil% 0.3 % (0-1); Eosinophils% 0.8 % (0-5); Hematocrit 32.5 % (37-47); Hemoglobin 10.2 g/dL (12.0-15.0); Lymphocyte # 2.27 X10^3/ul (0.83-4.51); Lymphocyte % 17.6 % (19-41); Mean Corp Hgb Conc 31.4 g/dL (32-36); Mean Corpuscular Hgb 27.9 pg (27.0-32.0); Mean Corpuscular Volume 88.8 fL (81-99); Mean Platelet Vol. 11.8 fl (6.2-12.0); Monocyte# 0.88 X10^3/uL; Monocyte% 6.8 % (0-10); NRBC Flagged by Analyzer 0 % (0-5); Neutrophil # 9.35 X10^3/uL (2.7-7.7); Neutrophil % 72.7 % (47-70); Platelet Count 283 K/mm3 (150-450); RBC Distribution Width CV 14.9 % (11.6-14.6); RBC Distribution Width SD 47.6 fl (35.1-43.9); Red Blood Count 3.66 M/mm3 (4.2-5.4); White Blood Count 12.9 K/mm3 (4.4-11.0)
== END ==
PROVIDERS: PCP Family Medicine; Referring Provider Obstetrics & Gynecology; Visit Provider Obstetrics & Gynecology
DX: O99.019 Anemia complicating pregnancy, unspecified trimester (principal); D64.9 Anemia, unspecified; Z3A.00 Weeks of gestation of pregnancy not specified
CPT/HCPCS: 36415; 85025

== ENCOUNTER → 2020-12-29 12:43 | Outpatient (CLI) | payer OTHER, SELFPAY | PROVIDERS: PCP Family Medicine; Referring Provider Obstetrics & Gynecology; Visit Provider Obstetrics & Gynecology | DX: Z34.80 Encounter for supervision of other normal pregnancy, unspecified trimester (principal) | CPT/HCPCS: 87081; 87635; C9803; U0005; U0003 ==

== ENCOUNTER 2021-01-04 09:30 | Inpatient (IN) | payer OTHER, SELFPAY ==
[2020-11-03 08:45] VITALS: BMI 27.7
--- NOTE | 2021-01-03 00:09 | PCM.HP.BLA ---
History and Physical Date of Admission: 01/04/21 Date of Service: 12/29/20 MR#:[id number]:[id number]: SHANNON SIEGELRep #:[id number] Provider:Winston Eid/Sex: 35/F [facility] with Addenda ADDENDUM by Nesha Fonseca on 12/29/20 at 1311 Office Procedure Documentation entered by Nesha Fonseca 12/29/20 13:11: Injections Procedure performed by: Nesha Fonseca Lot number: [id number] Combustion Engineer: THREAT STREAM date: 01/05/22 Dose of injection: 2 mL Site of injection: right gluteal IM Medication Given: Yes Results POC Urinalysis 2 Dip (Clinic) Office Urine Glucose Negative Last Edit by Nesha Fonseca on 12/29/20 10:40 Office Urine Protein Negative Last Edit by Nesha Fonseca on 12/29/20 10:40 12/29/20 1312<Electronically signed by Nesha Fonseca >Date Nesha Fonseca cc: ~*Signed Intake Vital Signs 12/29/20 10:26 Height 5 ft 4 in Weight: 176 lb 6 oz BMI 30.2 BP 112/70 Intake Visit Reasons: 36 WK 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 Is patient in pain?: No Allergies amoxicillin Adverse Reaction (Severe, Verified 12/29/20 10:26) rash Medications vit,[id number] 1 tab PO DAILY 01/29/15 [History Confirmed 12/29/20] venlafaxine 75 mg capsule,extended release 24 hr 75 mg PO DAILY #30 cap 12/09/20 [Rx Confirmed 12/29/20] ferrous sulfate 325 mg (65 mg iron) tablet 325 mg PO DAILY 12/15/20 [History Confirmed 12/29/20] betamethasone acetate and sodium phos 6 mg/mL suspension for injection 12 mg IM Q24H 2 Days #4 ml 12/29/20 [Rx Confirmed 12/29/20] Last Menstral Period: 04/12/20 Zika: Zika virus screening: Negative : No PFSH PFSH Medical History Abnormal ultrasound of breast Anxiety Lump of right breast Surgical History H/O breast biopsy H/O section History of ankle surgery History of breast augmentation History of right breast biopsy (~04/2019) History of tonsillectomy Family History Father Myocardial infarction Mother Endometriosis History of partial surgical removal of colon fibroid breast Arthritis Daughter Asthma Grandmother Arthritis Grandfather Heart disease Social History number of children: 2 current occupational status: unemployed 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 Date Name GA/Weeks Outcome Route Bth Weight Gen Labor Lgth Anesthesia Del Locatn Provider FOB 02/02/15 Josue 39 live - full term 6 lbs 11 oz Male 12 hours spinal [facility] Dr. Dea Connors 07/21/16 Luba 38 live - full term 6 lbs 4 oz Female 6 hours epidural [facility] Dr. Rina Connors Delivery Date: 02/02/15 distress; tight cord around the neck x 1. Chelle Lipscomb Delivery Date: 07/21/16 was in the process of when decel occurred; C/S then was decided. meconium-stained fluid is noted; There is a very thin lower uterine segment with an intact window at the left side. Nuchal cord around the neck x2, Chelle Lipscomb HPI 36 WK OB Details: SHANNON SIEGEL is a 35 year old who presents for RLTCS sec to preivous uterine rupture at time of . plan delivery 37 weeks. OB Visit JOHN Calculator Estimated Delivery Date Method Current WG Current Estimate 01/21/21 Ultrasound #1 36w 5d Other Estimates 01/14/21 LMP (Certain) 37w 5d Expected Delivery Route/Plan RLTCS at 37 weeks with SM Specific Issue/Plans flu vaccine: [] tdap vaccine: given rhogam: na LARC form signed: yes movement and labor precautions reviewed. Problem list reviewed and updated with the most current plan of care details and appropriate orders placed. Relevant counseling for the gestational age provided. Continue routine care and follow up unless otherwise noted in visit notes/problem list details Initial Weight: 145 lb Date EGA Weight BP Urine Prot Glucose FHR FuHt Pres Dilation Effaced St Visit Note 06/13/20 8w 2d 146 lb (+16 oz) 102/80 160 SM- CRL not consistent with LMP JOHN changed 07/14/20 12w 5d 151 lb (+6 lb) 100/70 Negative Negative 150 SM- no vb cramping 08/11/20 16w 5d 154 lb 6 oz (+9 lb 6 oz) 110/78 Negative Negative 145 GP - no LOF, VB, cramping. Denies complaints. Anatomy ordered. 09/07/20 20w 4d 156 lb 6 oz (+11 lb 6 oz) 100/60 Trace Negative 149 MH-No VB, LOF. GI flu last week. Better now. Anatomy US 09/12. Good FM 10/05/20 24w 4d 161 lb 8 oz (+16 lb 8 oz) 110/74 Negative Negative 145 24 GP - no LOF, VB, DFM, ctx. Has rash on her legs that she has gotten this time every - using steroid cream which is helping. 11/03/20 28w 5d 170 lb (+25 lb) 102/70 Negative Negative SM- no vb lof good fm nore gular ctx having skin reaction with poison linda and deer flies. offered medrol dose pack 11/16/20 30w 4d 169 lb 2 oz (+24 lb 2 oz) 106/60 Trace Negative 156 30 MH-No Vb, LOF. Good FM. Larc and tdap 12/01/20 32w 5d 169 lb 2 oz (+24 lb 2 oz) 104/70 Trace Negative 145 32 GP - no LOF, VB, DFM, ctx. Denies complaints. GP - no LOF, VB, DFM, ctx. Denies complaints. Just moved into new house. 12/15/20 34w 5d 173 lb 4 oz (+28 lb 4 oz) 108/80 Negative Negative 145 34 GP - no LOF, VB, dFM, ctx. Repeat CBC ordered today. Discussed treatment of constipation. 12/29/20 36w 5d 176 lb 6 oz (+31 lb 6 oz) 112/70 Negative Negative 149 36 GP - no LOF, VB, DFM, ctx. GBS done today. RLTCS next week. BMZ ordered for to be done next week. ACOG First Trimester First Trimester: Discussed Diagnostics Diagnostics Diagnostics: Blood Type O POSITIVE Antibody Screen NEGATIVE Glucose 1 Hr 50 gm 128 mg/dL (70-140) HIV 1&2 Antibody Non-Reactive (Nonreactive) Rubella IgG Antibody Reactive (Nonreactive) Hgb 10.2 g/dL (12.0-15.0) L Hct 32.5 % (37-47) L Chlamydia DNA (ALLISON) Negative (Negative) N.gonorrhoeae DNA (ALLISON) Negative (Negative) Details: HIV: Urine Culture: Sequential Screen: NIPT Screen: ROS GI Denies dyspepsia, Denies nausea and Denies vomiting Denies abnormal vaginal bleeding, Denies dysuria, Denies pelvic pain, Denies vaginal discharge, Denies vaginal odor and Denies vaginal pruritus Exam Const General: cooperative, healthy appearing, comfortable, no acute distress, well developed and well groomed Nutritional Appearance: average body habitus and well nourished Orientation: alert, awake and oriented x3 [facility] Head: normal to inspection, normocephalic and atraumatic Eyes Pupils: PERRL and accommodation normal Resp Effort & Inspection: normal respiratory effort, able to speak in complete sentences and symmetric chest movement Cardio Rate: regular rate GI Palpation: soft, no guarding, no masses and nontender Skin General: no rashes or lesions noted, elasticity normal and turgor normal Neuro General: patient alert, patient awake and patient oriented x3 Cranial Nerves: CN's II-XI intact bilaterally, sense of smell intact, PERRL, accommodation normal and EOM intact bilaterally Speech: speech normal Gait: normal gait Psych Appearance: grossly normal and well kempt Mental Status: mental status grossly normal Mood: congruent mood Affect: normal affect Speech and Movement: speech and movement normal Attitude: cooperative Thought Process: normal Thought Content: normal Judgment: judgment good Results POC Urinalysis 2 Dip (Clinic) Office Urine Glucose Negative Last Edit by Nesha Fonseca on 12/29/20 10:40 Office Urine Protein Negative Last Edit by Nesha Fonseca on 12/29/20 10:40 Coding Level of Care Code OB Routine Diagnoses History of rupture of uterus Z87.828 H/O section Z98.891 Supervision of other normal Z34.80 Z3A.36 Weeks of gestation: 36 weeks Transaminitis R74.0 Hypokalemia E87.6 Anxiety and depression F41.9; F32.9 Assessment and Plan Assessment and Plan (1) History of rupture of uterus: Status: Acute Comment: plan 37 week delivery. (2) H/O section: Status: Acute Comment: x2, plan RLTCS with , 01/04/21 @ 12 (3) Supervision of other normal : Status: Acute Comment: PRR JOHN: 01/14/21, suzy Archer PC: Luba Salas Spouse: Waylon Orders: Orders: COVID 19, PCR SENDOUT Today (4) : Status: Acute Qualifiers: Weeks of gestation: 36 weeks Qualified Code(s): Z3A.36 - 36 weeks gestation of Comment: genetics-low risk; already had carrier done with RGI. Anatomy US normal (5) Transaminitis: Status: Acute Comment: 11/2019- do a CMP at [facility] (6) Hypokalemia: Status: Acute Comment: 11/2019 (7) Anxiety and depression: Status: Chronic Comment: currently on Effexor Plan Details Other Medications: New: betamethasone acet,sod phos 6 mg/mL (Celestone Soluspan) 12 mg (2 mL) IM Q24H 2 days 4 mL 0RF Other Orders: Orders: POC Urinalysis 2 Dip (Clinic) Today UPDATE- I have seen the patient and performed any clinically relevant updates to the history and physical exam. Hayley Keyes MD
[2021-01-04] VITALS (14 sets, daily range): BP systolic 100–120; BP diastolic 46–72; PULSE 64–88; RESP 16–18; TEMP 36.2–37.1; O2SAT 95–99; BMI 29.1
[2021-01-04] MEDS: Lactated Ringers 1,000 ML 999 ML IV (09:50)
[2021-01-04 10:04] LABS: Absolute Lymphocyte Count 2.16 X10^3/uL (0.83-4.51); Basophil# 0.03 X10^3/uL; Basophil% 0.2 % (0-1); Eosinophil# 0.08 X10^3/uL; Eosinophils% 0.7 % (0-5); Hematocrit 31.9 % (37-47); Hemoglobin 9.9 g/dL (12.0-15.0); Lymphocyte # 2.16 X10^3/ul (0.83-4.51); Lymphocyte % 17.9 % (19-41); Mean Corpuscular Hgb 27.3 pg (27.0-32.0); Mean Corpuscular Volume 88.1 fL (81-99); Mean Platelet Vol. 11.6 fl (6.2-12.0); Monocyte# 0.62 X10^3/uL; Monocyte% 5.1 % (0-10); NRBC Flagged by Analyzer 0 % (0-5); Neutrophil # 8.97 X10^3/uL (2.7-7.7); Neutrophil % 74.2 % (47-70); Platelet Count 283 K/mm3 (150-450); RBC Distribution Width CV 16.1 % (11.6-14.6); RBC Distribution Width SD 52.7 fl (35.1-43.9); Red Blood Count 3.62 M/mm3 (4.2-5.4); White Blood Count 12.1 K/mm3 (4.4-11.0)
[2021-01-04] MEDS: Acetaminophen 500 MG Tablet 1000 MG PO ×2 (11:02→19:04)
[2021-01-04] MEDS: Lactated Ringers 1,000 ML 150 ML IV (11:04)
[2021-01-04] MEDS: Sodium Citrate/Citric Acid 30 ML UDC PO (12:10)
[2021-01-04] MEDS: Oxytocin 30 units/NS 500 ml 30 UNITS/500 ML IV.SOLN 167 UNITS IV (13:30)
[2021-01-04] MEDS: Ketorolac 30 MG/ML Syringe IV ×2 (13:40→19:52)
--- NOTE | 2021-01-04 14:40 | OP.PCM_ITS ---
Maternal Data Information JOHN Calculator Estimated Delivery Date Method Current WG Current Estimate 01/21/21 Ultrasound #1 37w 5d Other Estimates 01/14/21 LMP (Certain) 38w 5d Final JOHN Source: LMP Details Operative Information Date of Procedure: 01/04/21 Pre-Operative Diagnosis: Previous Post-Operative Diagnosis: same Indications for : Repeat Elective Classification: Scheduled Type of Anesthesia: Spinal Special Medications: none Antibiotic Given: Ancef 2 grams IV x1 Drain: Colon to straight drain Estimated Blood Loss: 600 Fluids Replaced: crystalloid Findings Description of Procedure: Spinal anesthesia was placed without difficulty. Colon catheter was placed. The patient was placed in the dorsal supine position with leftward tilt. Patient was prepped and draped in the normal sterile fashion. Pfannenstiel skin incision was made with the scalpel and carried through to the underlying layer of fascia with the scalpel. Fascia was nicked in the midline and the incision extended laterally. The rectus bellies were dissected off superiorly and inferiorly with out complication both sharply and bluntly. The peritoneum was entered digitally. The incision was stretched and a low transverse uterine incision was made with the scalpel. The infant's head was delivered atraumatically followed by the anterior and posterior shoulders without complication the rest of the delivered. The cord was clamped and cut and the infant was handed off to awaiting nurse. The placenta was delivered spontaneously immediately following and was noted to be intact and have a three- vessel cord. The uterus was exteriorized cleared of all clots and debris, and the incision was closed in a double layer closure using #1 Monocryl. The ovaries and fallopian tubes were noted to be within normal limits. The uterus was returned to the maternal abdomen and gutters were cleared of all clots and debris. The peritoneum was closed with 3-0 Monocryl in a running fashion. Gloves were changed prior to fascial closure. Fascia was closed with 0 PDS in a running fashion. Subcutaneous tissue was copiously irrigated and the skin was closed with 3-0 Monocryl in a subcuticular fashion. Mepilex dressing was applied without complication. Patient was taken to recovery in stable condition. It was discussed with the patient that based on the clinical information obtained during this encounter, combined with her history, at this time I would recommend cesareans for future deliveries if further pregnancies are desired. Amniotic Membrane Rupture Type: Artificial Amniotic Fluid Description: Clear Placenta Disposition: [facility] Cord Vessel Description: 3 Vessels Cord Entanglement: None Delayed Cord Clamping: Yes Complications Risks of Surgery Discussed w/Patient: Bleeding, Infection, Need for Future C- Sections and Injury to surrounding structure(s) including bowel and bladder Vaginal Delivery Complication Complications: None Admit VTE Documentation VTE Present on Admission: No VTE Mechan Device Prophylaxis: SCD's Procedures Urinary/Genital [id number]: [id number] Delivery [facility]
[2021-01-04] MEDS: Lactated Ringers 1,000 ML 100 ML IV (16:31)
[2021-01-05 00:35] VITALS: BP 103/58; PULSE 89; RESP 18
[2021-01-05] MEDS: Acetaminophen 500 MG Tablet 1000 MG PO ×4 (00:38→18:55)
[2021-01-05] MEDS: Ketorolac 30 MG/ML Syringe IV ×2 (01:50→08:37)
--- NOTE | 2021-01-05 02:26 | PCM.DC ---
Discharge Instructions Diet Discharge Diet: No restrictions Activity Discharge Activity: May Not Drive (for 2 weeks or while taking narcotic pain medications.), May Shower and May Take a Tub Bath (in 7 days) May shower in (days): 0 May resume sexual activity in: 4-6 weeks Weight Bearing Status: Full weight bearing Lifting Restrictions: 20 pounds Dressing / Incision Call your doctor if your incision/area has: Continuous Slow Oozing, Sudden Increased Bleeding, Increased Pain/ Swelling, Increased Redness and Foul Smelling Discharge Call your doctor if you observe: Fever of 101 or Higher and Using more than 1 pad per hour (for 2 hours) Suture Line Care: Avoid Pulling/Pushing and Avoid Pinching/Bending Cleanse incision/area with: Soap & Water and Keep Dressing Clean & Dry Follow Up Care Please Follow Up With: Hayley Keyes MD When: Call [phone] to make an appointment for an incision check in 1-2 weeks. Test Results: Test results from this visit will be discussed in further detail at your follow-up appointment, if applicable. Discharge Plan Admission Admit Date/Time: 01/04/21 09:30 Primary Reason for Your Visit: Attending Provider: Hayley Keyes Primary Care Provider: Gil Uribe Discharge Orders/Prescriptions Prescriptions: New oxycodone-acetaminophen [Percocet] 5-325 mg tablet 1 tab PO Q6H PRN (Reason: pain) 7 Days Qty: 20 RF: 0 naproxen [naproxen] 500 MG tablet 500 mg PO BID PRN PRN (Reason: Pain) Qty: 30 RF: 1 Continued ferrous sulfate 325 mg (65 mg iron) tablet 325 mg PO DAILY RF: 0 vit,[id number] 1 TABLET tablet 1 tab PO DAILY RF: 0 venlafaxine 75 mg capsule,extended release 24hr 75 mg PO DAILY Qty: 30 RF: 6 Referrals / Follow Up: Gil Uribe MD [Primary Care Provider] - Disposition Disposition (needs filled in before D/C Order can be placed): Home, Self Care
[2021-01-05 04:20] VITALS: BP 99/64; PULSE 93; RESP 18
[2021-01-05 05:22] LABS: Hematocrit 34.8 % (37-47); Hemoglobin 10.5 g/dL (12.0-15.0); Mean Corp Hgb Conc 30.2 g/dL (32-36); Mean Corpuscular Hgb 26.9 pg (27.0-32.0); Platelet Count 241 K/mm3 (150-450); RBC Distribution Width CV 16.3 % (11.6-14.6); Red Blood Count 3.91 M/mm3 (4.2-5.4); White Blood Count 13.7 K/mm3 (4.4-11.0)
[2021-01-05 07:57] VITALS: BP 104/59; PULSE 74; RESP 16; TEMP 36.3
--- NOTE | 2021-01-05 08:04 | PCM.PN.OB ---
Subjective Subjective Patient doing well without complaints. Tolerating PO. Ambulating and voiding without difficulty. feeding well. Denies chest pain, shortness of breath, calf pain/swelling, fevers, chills, lightheadedness. Objective Data Objective Data Vital Signs: Vital Signs Temp Pulse Resp BP Pulse Ox 97.3 F L 74 16 104/59 L 98 01/05/21 07:57 01/05/21 07:57 01/05/21 07:57 01/05/21 07:57 01/04/21 21:41 Oxygen Delivery Method Room Air Weight: 169 lb 12.095 oz Body Mass Index (BMI) 29.1 Intake & Output: Intake and Output for Last 24 Hours 01/03/21 01/04/21 01/05/21 23:59 23:59 23:59 Intake Total 3105.25 / 3105.25 Output Total 500 / 500 1600 / 1600 Balance 2605.25 / 2605.25 -1600 / -1600 Lab / Micro Data Result Diagrams: 01/05/21 05:20 Labs: Laboratory Results - last 24 hr 01/04/21 09:50: WBC 12.1 H, RBC 3.62 L, Hgb 9.9 L, Hct 31.9 L, MCV 88.1, MCH 27.3, MCHC 31.0 L, RDW Std Deviation 52.7 H, RDW Coeff of Basil 16.1 H, Plt Count 283, MPV 11.6, Immature Gran % (Auto) 1.900 H, Neut % (Auto) 74.2 H, Lymph % (Auto) 17.9 L, Bennett % (Auto) 5.1, Eos % (Auto) 0.7, Baso % (Auto) 0.2, Absolute Neuts (auto) 9.0 H, Absolute Lymphs (auto) 2.16, Nucleated RBC % 0 01/04/21 09:50: Blood Type O POSITIVE, Antibody Screen NEGATIVE 01/05/21 05:20: WBC 13.7 H, RBC 3.91 L, Hgb 10.5 L, Hct 34.8 L, MCV 89.0, MCH 26.9 L, MCHC 30.2 L, RDW Std Deviation 53.0 H, RDW Coeff of Basil 16.3 H, Plt Count 241, MPV 11.0 Micro: Microbiology 01/04/21 10:30 Genital vaginal Gram Stain - Final ROS Constitutional Constitutional: Reports systems reviewed and no addt'l complaints, except as documented Cardiovascular Cardiovascular: Reports systems reviewed and no addt'l complaints, except as documented Respiratory/Chest Respiratory/Chest: Reports systems reviewed and no addt'l complaints, except as documented Gastrointestinal Gastrointestinal: Reports systems reviewed and no addt'l complaints, except as documented Physical Exam Const alert, oriented x3 and no apparent distress HEENT Head and Scalp: atraumatic Resp normal respiratory effort GI soft to palpation and non-tender Inspection: incision intact, healing well and drainage (none) Bimanual Exam - Vag & Uterus: uterus non-tender Uterus Palpation: uterus fundus firm (below Umbilicus) Assessment & Plan (1) Anxiety and depression: COMMENT: currently on Effexor (2) delivery delivered: COMMENT: RLTCS 37 due to h/o rupture SM boy Archer
[2021-01-05] MEDS: 0.9% Saline Lock 10 ML Syringe IV (08:37)
[2021-01-05] MEDS: Venlafaxine XR 75 MG Capsule PO (12:16)
[2021-01-05] MEDS: Senna/Docusate Sodium 1 Tablet PO (12:16)
[2021-01-05 12:41] VITALS: BP 113/64; PULSE 80; RESP 16; TEMP 36.1
[2021-01-05] MEDS: oxyCODONE 5 MG Tablet PO ×3 (13:07→21:57)
[2021-01-05] MEDS: Naproxen 500 MG Tablet PO (15:41)
[2021-01-05 17:00] VITALS: BP 97/63; PULSE 86; RESP 16; TEMP 36.2
[2021-01-05 21:27] VITALS: BP 112/58; PULSE 83; RESP 18; TEMP 36.4
[2021-01-06] MEDS: Naproxen 500 MG Tablet PO ×2 (00:21→08:29)
[2021-01-06] MEDS: Acetaminophen 500 MG Tablet 1000 MG PO ×2 (00:21→06:25)
[2021-01-06 03:03] VITALS: BP 103/61; PULSE 71; RESP 18; TEMP 36.1
[2021-01-06] MEDS: oxyCODONE 5 MG Tablet PO ×2 (04:30→08:57)
[2021-01-06 08:00] VITALS: BP 100/59; PULSE 86; RESP 14; TEMP 36.2; O2SAT 97
[2021-01-06] MEDS: Senna/Docusate Sodium 1 Tablet PO (08:29)
--- NOTE | 2021-01-06 08:53 | PCM.PN.OB ---
Subjective Subjective Patient doing well without complaints. Tolerating PO. Ambulating and voiding without difficulty. Breast feeding well. Denies chest pain, shortness of breath, calf pain/swelling, fevers, chills, lightheadedness. Objective Data Objective Data Vital Signs: Vital Signs Temp Pulse Resp BP Pulse Ox 97 F L 71 18 103/61 98 01/06/21 03:03 01/06/21 03:03 01/06/21 03:03 01/06/21 03:03 01/04/21 21:41 Oxygen Delivery Method Room Air Weight: 169 lb 12.095 oz Body Mass Index (BMI) 29.1 Intake & Output: Intake and Output for Last 24 Hours 01/04/21 01/05/21 01/06/21 23:59 23:59 23:59 Intake Total 3105.25 / 3105.25 Output Total 500 / 500 1600 / 1600 Balance 2605.25 / 2605.25 -1600 / -1600 Lab / Micro Data Result Diagrams: 01/05/21 05:20 Micro: Microbiology 01/04/21 10:30 Genital vaginal Gram Stain - Final ROS Constitutional Constitutional: Denies fever(s) Cardiovascular Cardiovascular: Denies chest pain, dyspnea or lightheadedness Gastrointestinal Gastrointestinal: Reports abdominal pain; Denies constipation or diarrhea Neurologic Neurologic: Denies dizziness or headache(s) Physical Exam Const alert, oriented x3, no apparent distress, average body habitus, healthy appearing and well nourished HEENT normocephalic Head and Scalp: atraumatic Eyes PERRL and EOMs intact bilaterally Neck full ROM Lymph Lymphatic: no lymphadenopathy noted Resp normal respiratory effort, no retractions and no use of accessory muscles Cardio regular rate GI soft to palpation, non-tender and non-distended Inspection: incision intact and other (dressing in place) Palpation: other Other Details: fundus firm Extremity normal to inspection and no clubbing, cyanosis or edema Skin no rashes or lesions noted Neuro no focal motor deficits and no sensory deficits noted Psych mental status grossly normal, affect normal and speech normal Assessment & Plan (1) delivery delivered: COMMENT: RLTCS 37 due to h/o rupture SM boy Archer PLAN: s/p LTCS PPD # 2 1. routine post care 2. breast feeding- support given 3. rh positive 4. rubella immune
--- NOTE | 2021-01-06 11:30 | NURSING ---
Patient would like to go home as soon as possible. PHILIP Ewing, reviewed chart and states that it is ok to discharge patient home without an in-person consult. SW will call patient on Saturday. Patient is agreeable to this plan. This RN has no concerns. Patient is appropriate.
[2021-01-06 12:48] VITALS: BP 98/63; PULSE 76; RESP 14; TEMP 36.6; O2SAT 98
== END 2021-01-06 12:45 | disposition home or self-care (01) | DRG 788 ==
PROVIDERS: Admitting Provider Obstetrics & Gynecology; PCP Family Medicine; Referring Provider Obstetrics & Gynecology; Visit Provider Obstetrics & Gynecology
PROC: 10D00Z1 Extraction of Products of Conception, Low, Open Approach (ICD-10-PCS; CPT 59514; principal; 2021-01-04 11:45)
DX: O34.211 Maternal care for low transverse scar from previous cesarean delivery (principal); N85.8 Other specified noninflammatory disorders of uterus; Z3A.37 37 weeks gestation of pregnancy; Z37.0 Single live birth; O99.344 Other mental disorders complicating childbirth; F41.9 Anxiety disorder, unspecified; F32.9 Major depressive disorder, single episode, unspecified
CPT/HCPCS: 85025; 85027; 86850; 86900; 86901; 87070; 87205; 99218; J7120; A4216; G0378; J2405

== ENCOUNTER → 2021-02-27 12:34 | Outpatient (CLI) | payer OTHER, SELFPAY ==
[2021-02-27 15:17] LABS: Absolute Lymphocyte Count 2.19 X10^3/uL (0.83-4.51); Absolute Neutrophil Count 4.2 X10^3/uL (2.0-7.7); Basophil# 0.05 X10^3/uL; Basophil% 0.7 % (0-1); Eosinophil# 0.26 X10^3/uL; Eosinophils% 3.6 % (0-5); Hematocrit 37.3 % (37-47); Hemoglobin 11.6 g/dL (12.0-15.0); Lymphocyte # 2.19 X10^3/ul (0.83-4.51); Lymphocyte % 30.1 % (19-41); Mean Corp Hgb Conc 31.1 g/dL (32-36); Mean Corpuscular Hgb 26.3 pg (27.0-32.0); Mean Corpuscular Volume 84.6 fL (81-99); Mean Platelet Vol. 12.1 fl (6.2-12.0); Monocyte# 0.55 X10^3/uL; Monocyte% 7.6 % (0-10); NRBC Flagged by Analyzer 0 % (0-5); Neutrophil % 57.7 % (47-70); Platelet Count 316 K/mm3 (150-450); RBC Distribution Width CV 15.9 % (11.6-14.6); RBC Distribution Width SD 49.7 fl (35.1-43.9); Red Blood Count 4.41 M/mm3 (4.2-5.4); White Blood Count 7.3 K/mm3 (4.4-11.0)
[2021-02-27 15:40] LABS: Thyroid Stim Hormone (TSH) 1.77 uIU/mL (0.358-3.74)
[2021-02-27 15:52] LABS: hCG Titer Quant., Serum < 1 mIU/mL (1-3)
== END ==
PROVIDERS: PCP Family Medicine; Referring Provider Obstetrics & Gynecology; Visit Provider Obstetrics & Gynecology
DX: N93.9 Abnormal uterine and vaginal bleeding, unspecified (principal)
CPT/HCPCS: 36415; 84443; 84702; 85025

== ENCOUNTER 2021-07-04 17:55 | Outpatient (CLI) | payer OTHER, SELFPAY ==
[2021-07-06 22:07] LABS: Chlamydia By Nucleic Acid AMP Negative (Negative)
[2021-07-06 23:01] LABS: Gonococcus By Nucleic Acid AMP Negative (Negative)
== END 2021-07-04 23:59 | disposition home or self-care (01) ==
LOC: LABSPEC 07-05 08:29
PROVIDERS: PCP Family Medicine; Visit Provider Nurse Practitioner Women's Health
DX: N76.0 Acute vaginitis (principal); Z11.3 Encounter for screening for infections with a predominantly sexual mode of transmission
CPT/HCPCS: 87070; 87205; 87491; 87591

== ENCOUNTER 2021-11-03 09:44 | Outpatient (CLI) | payer MEDICAID, SELFPAY ==
[2021-11-03 10:11] LABS: Amphetamine Urine VISTA NEGATIVE (<1000 ng/mL); Barbiturate Urine VISTA NEGATIVE (< 200 ng/mL); Benzodiazepine Urine VISTA NEGATIVE (< 200 ng/mL); Cocaine Urine VISTA NEGATIVE (< 300 ng/mL); Ecstacy Urine VISTA NEGATIVE (< 500 ng/mL); Methadone Urine VISTA NEGATIVE (< 300 ng/mL); PCP Urine VISTA NEGATIVE (< 25 ng/mL); THC Urine VISTA NEGATIVE (< 50 ng/mL); Vista UDS pH Range 6
[2021-11-06 22:06] LABS: Chlamydia By Nucleic Acid AMP Negative (Negative)
[2021-11-06 23:29] LABS: Gonococcus By Nucleic Acid AMP Negative (Negative)
== END 2021-11-03 23:59 | disposition home or self-care (01) ==
LOC: LABSPEC 09:45
PROVIDERS: PCP Family Medicine; Referring Provider Obstetrics & Gynecology; Visit Provider Obstetrics & Gynecology
DX: Z34.91 Encounter for supervision of normal pregnancy, unspecified, first trimester (principal)
CPT/HCPCS: 80307; 87086; 87088; 87491; 87591

== ENCOUNTER → 2021-11-30 | Outpatient (CLI) | payer MEDICAID, SELFPAY ==
[2021-11-30 10:57] LABS: Absolute Lymphocyte Count 1.72 X10^3/uL (0.83-4.51); Absolute Neutrophil Count 7.4 X10^3/uL (2.0-7.7); Basophil# 0.04 X10^3/uL; Basophil% 0.4 % (0-1); Eosinophil# 0.07 X10^3/uL; Eosinophils% 0.7 % (0-5); Hematocrit 36.2 % (37-47); Hemoglobin 11.8 g/dL (12.0-15.0); Lymphocyte # 1.72 X10^3/ul (0.83-4.51); Lymphocyte % 17.3 % (19-41); Mean Corp Hgb Conc 32.6 g/dL (32-36); Mean Corpuscular Hgb 28.4 pg (27.0-32.0); Mean Corpuscular Volume 87.2 fL (81-99); Mean Platelet Vol. 11.4 fl (6.2-12.0); Monocyte# 0.71 X10^3/uL; Monocyte% 7.1 % (0-10); NRBC Flagged by Analyzer 0 % (0-5); Neutrophil # 7.36 X10^3/uL (2.7-7.7); Platelet Count 234 K/mm3 (150-450); RBC Distribution Width CV 13.8 % (11.6-14.6); RBC Distribution Width SD 43.7 fl (35.1-43.9); Red Blood Count 4.15 M/mm3 (4.2-5.4)
[2021-11-30 11:51] LABS: NATERA MAILED SPECIMEN
[2021-11-30 12:28] LABS: HIV - WCH Non-Reactive (Nonreactive); Hepatitis B Surface Antigen Non-Reactive (Nonreactive); Hepatitis C Antibody Non-Reactive (Nonreactive); Rubella IgG Reactive (Nonreactive); Syphilis Antibodies Non-reactive
== END | disposition home or self-care (01) ==
LOC: PAVLAB 10:42
PROVIDERS: PCP Family Medicine; Referring Provider Obstetrics & Gynecology; Visit Provider Obstetrics & Gynecology
DX: Z34.81 Encounter for supervision of other normal pregnancy, first trimester (principal)
CPT/HCPCS: 36415; 85025; 86703; 86762; 86780; 86803; 86850; 86900; 86901; 87340

== ENCOUNTER → 2022-04-11 | Outpatient (CLI) | payer MEDICAID, SELFPAY ==
[2022-04-11 09:51] LABS: Absolute Lymphocyte Count 1.75 X10^3/uL (0.83-4.51); Absolute Neutrophil Count 9.7 X10^3/uL (2.0-7.7); Basophil# 0.03 X10^3/uL; Basophil% 0.2 % (0-1); Eosinophils% 0.8 % (0-5); Hematocrit 29.4 % (37-47); Hemoglobin 9.5 g/dL (12.0-15.0); Lymphocyte # 1.75 X10^3/ul (0.83-4.51); Lymphocyte % 13.7 % (19-41); Mean Corp Hgb Conc 32.3 g/dL (32-36); Mean Corpuscular Hgb 28.7 pg (27.0-32.0); Mean Corpuscular Volume 88.8 fL (81-99); Mean Platelet Vol. 10.5 fl (6.2-12.0); Monocyte# 0.84 X10^3/uL; Monocyte% 6.6 % (0-10); NRBC Flagged by Analyzer 0 % (0-5); Neutrophil # 9.73 X10^3/uL (2.7-7.7); Neutrophil % 76.3 % (47-70); Platelet Count 245 K/mm3 (150-450); RBC Distribution Width CV 15.4 % (11.6-14.6); Red Blood Count 3.31 M/mm3 (4.2-5.4); White Blood Count 12.8 K/mm3 (4.4-11.0)
[2022-04-11 10:01] LABS: Glucose Challenge Gest 1H 50g 119 mg/dL (70-140)
== END | disposition home or self-care (01) ==
PROVIDERS: PCP Family Medicine; Referring Provider Obstetrics & Gynecology; Visit Provider Obstetrics & Gynecology
DX: O09.90 Supervision of high risk pregnancy, unspecified, unspecified trimester (principal)
CPT/HCPCS: 36415; 82950; 85025

== ENCOUNTER 2022-04-26 10:03 | Outpatient (CLI) | payer MEDICAID, SELFPAY ==
[2022-04-26] MEDS: 0.9% NaCl Peripheral Flush Adult/Peds IV (10:09)
[2022-04-26] MEDS: 0.9% NaCl IVPB Med Flush (250 mL) 15 ML IV (10:18)
[2022-04-26 10:19] VITALS: BP 102/56; PULSE 88; RESP 16; TEMP 36.6; O2SAT 97
[2022-04-26 12:01] VITALS: BP 103/52; PULSE 86; RESP 14; TEMP 36.8; O2SAT 100
== END 2022-04-26 23:59 | disposition home or self-care (01) ==
LOC: MEDOUTP 10:03
PROVIDERS: PCP Family Medicine; Referring Provider Nurse Practitioner Women's Health; Visit Provider Nurse Practitioner Women's Health
DX: D64.9 Anemia, unspecified (principal)
CPT/HCPCS: 96365; J1756; J7050; A4216

== ENCOUNTER → 2022-05-03 | Outpatient (CLI) | payer MEDICAID, SELFPAY ==
[2022-05-03 09:45] VITALS: BP 108/31; PULSE 83; RESP 16; TEMP 36.5; O2SAT 100; BMI 30.9
[2022-05-03] MEDS: 0.9% NaCl Peripheral Flush Adult/Peds IV (09:57)
[2022-05-03] MEDS: 0.9% NaCl IVPB Med Flush (250 mL) 15 ML IV (10:05)
[2022-05-03 12:07] VITALS: BP 104/59; PULSE 83; RESP 16; TEMP 36.2; O2SAT 100
== END | disposition home or self-care (01) ==
LOC: MEDOUTP 09:39
PROVIDERS: PCP Family Medicine; Referring Provider Nurse Practitioner Women's Health; Visit Provider Nurse Practitioner Women's Health
DX: D64.9 Anemia, unspecified (principal)
CPT/HCPCS: 96372; J1756; J7050; A4216

== ENCOUNTER → 2022-05-10 | Outpatient (CLI) | payer MEDICAID, SELFPAY ==
[2022-05-10 10:13] VITALS: BP 98/48; PULSE 87; RESP 16; TEMP 36.3; O2SAT 99
[2022-05-10] MEDS: 0.9% NaCl Peripheral Flush Adult/Peds IV (10:22)
[2022-05-10] MEDS: 0.9% NaCl IVPB Med Flush (250 mL) 15 ML IV (10:29)
[2022-05-10 12:18] VITALS: BP 103/59; PULSE 88; RESP 16; TEMP 36.6; O2SAT 99
== END | disposition home or self-care (01) ==
PROVIDERS: PCP Family Medicine; Referring Provider Nurse Practitioner Women's Health; Visit Provider Nurse Practitioner Women's Health
DX: D64.9 Anemia, unspecified (principal)
CPT/HCPCS: 96372; J1756; J7050; A4216

== ENCOUNTER → 2022-05-25 | Outpatient (CLI) | payer MEDICAID, SELFPAY | END | disposition home or self-care (01) | LOC: LABSPEC 14:45 | PROVIDERS: PCP Family Medicine; Referring Provider Obstetrics & Gynecology; Visit Provider Obstetrics & Gynecology | DX: Z34.93 Encounter for supervision of normal pregnancy, unspecified, third trimester (principal); Z3A.36 36 weeks gestation of pregnancy | CPT/HCPCS: 87081 ==

== ENCOUNTER 2022-06-04 04:40 | Inpatient (IN) | payer MEDICAID, SELFPAY ==
--- NOTE | 2022-06-03 12:18 | HP.PCM.OB_ITS ---
HPI - General HPI Narrative SHANNON SIEGEL, is a 37 F who presents for RLTCS due to history of previous uterine window/rupture present at previous csection Maternal Data Information JOHN Calculator Estimated Delivery Date Method Current WG Current Estimate 06/19/22 Ultrasound #2 37w 5d Other Estimates 06/09/22 LMP (Certain) 39w 1d 06/25/22 Ultrasound #1 36w 6d PFSH PFSH Medical History Abnormal ultrasound of breast Anxiety delivery delivered Lump of right breast Superficial varicosities Home Medications ferrous sulfate 325 mg (65 mg iron) tablet 325 mg PO DAILY anemia 12/15/20 [History Last Taken 01/03/21 20:00] PNV-iron 29 mg-folic acid 1 mg-omega3 250 mg-dha 200mg oral combo pack pkg PO 11/01/21 [History Last Taken Unknown] venlafaxine 75 mg capsule,extended release 24 hr 75 mg PO DAILY anxiety #30 caps 02/21/22 [Rx Last Taken Unknown] Allergy/AdvReac Type Severity Reaction Status Date / Time amoxicillin Allergy Severe rash Verified 06/01/22 10:06 Family History Father Myocardial infarction Mother Endometriosis History of partial surgical removal of colon fibroid breast Arthritis Daughter Asthma Grandmother Arthritis Grandfather Heart disease Surgical History H/O breast biopsy H/O section History of ankle surgery History of breast augmentation History of right breast biopsy (~04/2019) History of tonsillectomy Social History adopted: No household members: spouse and children housing: house number of children: 3 current occupational status: unemployed 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 pets and animals: Yes (not managing the litter box) pets and animals: cat(s) and dog(s) history of recent travel: No sexually active: Yes Smoking Status: Never smoker alcohol intake: never substance use type: does not use diet: other well-balanced diet: daily or most days caffeine: Yes Type: tea Number of servings: 1 eating out: rarely or never during the past year weight has: remained stable what type of physical activity do you participate in: walking and swimming frequency: 3-4 times per week duration: 45-60 minutes/day zhang/adventist: Protestant seatbelt use: always do you feel safe at home: Yes 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 Date Name GA/Weeks Outcome Route Bth Weight Infant Gen Labor Lgth Anesthesia Del Locatn Provider FOB 02/02/15 Josue 39 live - full term 6 lbs 11 oz Ma le 12 hours spinal [facility] Dr. Dea Connors 07/21/16 Luba 38 live - full term 6 lbs 4 oz F emale 6 hours epidural [facility] Dr. Rina Connors 01/05/21 Archer 37 live - full term Male [facility] Dr. Keyes Delivery Date: 02/02/15 Last Updated by: Chelle Lipscomb distress; tight cord around the neck x 1. Delivery Date: 07/21/16 Last Updated by: Chelle Lipscomb was in the process of when decel occurred; C/S then was decided. meconium-stained fluid is noted; There is a very thin lower uterine segment with an intact window at the left side. Nuchal cord around the neck x2, Visit Details Expected Delivery Route/Plan RLTCS 37 Plans Covid status: [] Flu vaccine: [] Tdap vaccine: [] Rhogam: [] LARC form signed: [] Problem list reviewed and updated with the most current plan of care details and appropriate orders placed. Relevant counseling for the gestational age provided. Continue routine care and follow up unless otherwise noted in visit notes/problem list details OB Flowsheet Initial Weight: Not Recorded Date -?-?-?-?-?-?-?-?-?-?-?-?- EGA Weight BP Urine Prot -?-?-?-?-?-?-?-?-?-?-?-?- Glucose FHR FuHt Pres Dilation -?-?-?-?-?-?-?-?-?-?-?-?- Effaced St Visit Note 11/03/21 -?-?-?-?-?-?-?-?-?-?-?-?- 7w 3d 147 lb 8 oz 104/60 -?-?-?-?-?-?--?-?-?-?-?-?- 120 -?-?-?-?-?-?-?-?-?-?-?-?- Sm- CRL 7.8mm NO T cons with LMP 11/30/21 -?-?-?-?-?-?-?-?-?-?-?-?- 11w 2d 150 lb 110/80 -?-?-?-?-?-?-?-?-?-?-?-?- 180 -?-?-?-?-?-?-?-?-?-?-?-?- SM- CRL measurin g 11w4d SM- CRL measuring 11w2d whic h is consistent with ovulation, JOHN changed to US JOHN today 12/27/21 -?-?-?-?-?-?-?-?-?-?-?-?- 15w 1d 154 lb 4 oz 118/76 Nega tive -?-?-?-?-?-?-?-?-?-?-?-?- Negative 153 -?-?-?-?-?-?--?-?-?-?-?-?- MH-No Vb, LOF. No FM yet. NIPT LR. US order sent 01/26/22 -?-?-?-?-?-?-?-?-?-?-?-?- 19w 3d 159 lb 4 oz 114/71 Nega tive -?-?-?-?-?-?-?-?-?-?--?-?- Negative 150 -?-?-?-?-?-?-?-?-?-?-?-?- JV- anatomy scan reviewed on patient's phone. She states that the tech told her the placenta is growing close to the scar and the baby is small but Dr. Franks's report does not say this. pt reassured. WIll discuss with Rosalina Galloway. 02/21/22 -?-?-?-?-?-?-?-?-?-?-?-?- 23w 1d 161 lb 4 oz 101/64 Nega tive -?-?-?-?-?-?-?-?-?-?-?-?- Negative 145 -?-?-?-?-?-?-?-?-?-?-?-?- JV-no lof, vagin al bleeding, or dec fm. pt states that she has been getting growth scans with MFM and they did not schedule her next one becuase uncertain if we were doing them here. plan to continue with MFM. pt getting over sinus infection. 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 04/11/22 -?-?-?-?-?-?-?-?-?-?-?-?- 30w 1d 174 lb 101/67 Negative -?-?-?-?-?-?-?-?-?-?-?-?- Negative 149 -?-?-?-?-?-?-?-?-?-?-?-?- JV- no lof, vagi nal bleeding, or dec fm. growth scans are looking normal now. has one more coming up and if normal will discontinue testing. wants cs closer to 38 weeks with SM. tdap given today. 04/27/22 -?-?-?-?-?-?-?-?-?-?-?-?- 32w 3d 180 lb 124/80 -?-?-?-?-?-?-?-?-?-?-?-?- 135 -?-?-?-?-?-?-?-?-?-?-?-?- SM- no vb lof go od fm no regualr ctx 05/03/22 -?-?-?-?-?-?-?-?-?-?-?-?- 33w 2d 180 lb 105/64 Negative -?-?-?-?-?-?-?-?-?-?-?-?- Negative 140 -?-?-?-?-?-?-?-?-?-?-?-?- MH-NSY only reac tive 05/10/22 -?-?-?-?-?-?-?-?-?-?-?-?- 34w 2d 183 lb 111/65 Negative -?-?-?-?-?-?-?-?-?-?-?-?- Negative 130 -?-?-?-?-?-?-?-?-?-?-?-?- JV- nst reactive , has section scheduled 05/16/22 -?-?-?-?-?-?-?-?-?-?-?-?- 35w 1d 180 lb 8 oz 120/70 Nega tive -?-?-?-?-?-?-?-?-?-?-?-?- Negative 140 -?-?-?-?-?-?-?-?-?-?-?-?- JV- nst reactive . has rpt scan with mfm on saturday and will return on Saturday with us. 05/25/22 -?-?-?-?-?-?-?-?-?-?-?-?- 36w 3d 182 lb 6 oz 100/67 Nega tive -?-?-?-?-?-?-?-?-?-?--?-?- Negative 140 36 -?-?-?-?-?-?-?-?-?-?-?-?- SM- no vb lof go od fm no regualr ctx 06/01/22 -?-?-?-?-?-?-?-?-?-?-?-?- 37w 3d 183 lb 4 oz 107/67 -?-?-?-?-?-?-?-?-?-?-?-?- 140 37 -?-?-?-?-?-?-?-?-?-?-?-?- JV- consent for surgery saturday signed. no complaints. NO lof, vaginal blee ding, or dec fm. 06/04/22 -?-?-?-?-?-?-?-?-?-?-?-?- 37w 6d -?-?-?-?-?-?-?-?-?-?-?-?- -?-?-?-?-?-?-?-?-?-?-?-?- NST FHR Rate Baby A Baseline: 130 ROS Constitutional Constitutional: Reports systems reviewed and no addt'l complaints, except as documented Eyes Eyes: Denies change in vision ENT HEENT: Reports systems reviewed and no addt'l complaints, except as documented; Denies headache(s) Cardiovascular Cardiovascular: Reports systems reviewed and no addt'l complaints, except as documented; Denies chest pain or dyspnea Respiratory/Chest Respiratory/Chest: Reports systems reviewed and no addt'l complaints, except as documented Gastrointestinal Gastrointestinal: Reports systems reviewed and no addt'l complaints, except as documented; Denies abdominal pain Genitourinary Genitourinary: Reports systems reviewed and no addt'l complaints, except as documented, contractions Details: present (irregular) and movement Details: present; Denies dysuria or genital lesions Musculoskeletal Musculoskeletal: Reports systems reviewed and no addt'l complaints, except as documented Neurologic Neurologic: Reports systems reviewed and no addt'l complaints, except as documented Endocrine Endocrinology: Reports systems reviewed and no addt'l complaints, except as documented Physical Exam Const alert, oriented x3, no apparent distress and healthy appearing HEENT normocephalic and moist oral mucous membranes Head and Scalp: atraumatic Neck full ROM, no lymphadenopathy, supple and thyroid normal General: trachea midline Lymph Lymphatic: no lymphadenopathy noted Chest inspection of chest normal Resp normal respiratory effort Cardio regular rate GI normal to inspection, nondistended, normoactive bowel sounds, soft to palpation and non-tender Inspection: gravid external exam normal Manual OB Exam: estimated gestational size appropriate, presentation cephalic, dilated, effaced and station Extremity normal to inspection General Extremity: Negative for edema Skin no rashes or lesions noted Neuro no focal motor deficits and deep tendon reflexes 2+ bilaterally Motor Exam: strength 5/5 throughout and clonus absent Psych mental status grossly normal Labs Labs Labs: Blood Type O POSITIVE Antibody Screen NEGATIVE Hct 29.4 % (37-47) L Hgb 9.5 g/dL (12.0-15.0) L Obstetrics US Syphilis Total Ab Non-reactive Rubella IgG Antibody Reactive (Nonreactive) Hep Bs Antigen Non-Reactive (Nonreactive) Chlamydia DNA ([facility]ISON) Negative (Negative) Neisseria gonorrhoeae DNA ([facility]ISON) Negative (Negative) HIV 1&2 Antibody Non-Reactive (Nonreactive) Glucose 1 Hr 50 gm 119 mg/dL (70-140) Group B Strep DNA Negative (Negative) Rhogam given: No Miscellaneous Test Assessment & Plan (1) Anxiety and depression: COMMENT: currently on Effexor (2) : QUALIFIERS: Weeks of gestation: 37 weeks Qualified Code(s): Z3A.37 - 37 weeks gestation of COMMENT: GBS Negative, anatomy nl, repeat views in 2 wks, NIPT low risk, previous Carrier testing (3) Supervision of high risk , antepartum: COMMENT: [id number], JOHN 06/19/21, girl, PC Luba Salas, Archer Spouse Waylon (4) COVID-19 affecting in first trimester: COMMENT: asa 81 mg daily, growth US @ 32 7 36 wks.growth nl (5) AMA (advanced maternal age) multigravida 35+: COMMENT: genetic screening options discussed and NIPT planned. (6) History of rupture of uterus: COMMENT: thin MUMTAZ with intact window- plan 37 week delivery, RLTCS 06/04/22 @ 7:10 with SM. celestone given 05/25 and 05/26 (7) Polyhydramnios affecting : COMMENT: Borderline and repeat US 4 wk with MFM. abdomen slightly enlarged. Wkly NST PLAN: Plan plan RLTCS After discussing the patient's diagnosis and treatment plan options, patient wishes to proceed with surgical management. I have discussed with the patient the risks, benefits, and alternatives of the procedure which include but are not limited to risks of anesthesia, bleeding, infection, possible damage to bowel, bladder, or surrounding vasculature which could lead to additional surgery to evaluate any complications. Patient agrees to procedure and wishes to proceed. ACOG/uptodate references given for additional information regarding procedure.
[2022-06-04] VITALS (16 sets, daily range): BP systolic 100–123; BP diastolic 43–69; PULSE 65–94; RESP 12–19; TEMP 36–36.9; O2SAT 95–99; BMI 31.6
[2022-06-04] MEDS: Lactated Ringers 1,000 ML 999 ML IV (05:15)
[2022-06-04] MEDS: Acetaminophen 500 MG Tablet 1000 MG PO ×3 (05:35→17:18)
[2022-06-04 05:59] LABS: Absolute Lymphocyte Count 1.82 X10^3/uL (0.83-4.51); Absolute Neutrophil Count 7.8 X10^3/uL (2.0-7.7); Basophil# 0.06 X10^3/uL; Basophil% 0.6 % (0-1); Eosinophil# 0.07 X10^3/uL; Eosinophils% 0.7 % (0-5); Hematocrit 30.9 % (37-47); Hemoglobin 9.7 g/dL (12.0-15.0); Lymphocyte # 1.82 X10^3/ul (0.83-4.51); Mean Corp Hgb Conc 31.4 g/dL (32-36); Mean Corpuscular Hgb 28.4 pg (27.0-32.0); Mean Corpuscular Volume 90.4 fL (81-99); Mean Platelet Vol. 11.9 fl (6.2-12.0); Monocyte# 0.71 X10^3/uL; Monocyte% 6.6 % (0-10); NRBC Flagged by Analyzer 0 % (0-5); Neutrophil # 7.75 X10^3/uL (2.7-7.7); Neutrophil % 72.5 % (47-70); Platelet Count 204 K/mm3 (150-450); RBC Distribution Width CV 17.1 % (11.6-14.6); RBC Distribution Width SD 55.8 fl (35.1-43.9); Red Blood Count 3.42 M/mm3 (4.2-5.4); White Blood Count 10.7 K/mm3 (4.4-11.0)
[2022-06-04] MEDS: Lactated Ringers 1,000 ML 150 ML IV (06:17)
[2022-06-04] MEDS: Sodium Citrate/Citric Acid 30 ML UDC PO (07:09)
--- NOTE | 2022-06-04 07:18 | OP.PCM_ITS ---
Assessment & Plan (1) Anxiety and depression: COMMENT: currently on Effexor (2) : QUALIFIERS: Weeks of gestation: 37 weeks Qualified Code(s): Z3A.37 - 37 weeks gestation of COMMENT: GBS Negative, anatomy nl, repeat views in 2 wks, NIPT low risk, previous Carrier testing (3) Supervision of high risk , antepartum: COMMENT: [id number], JOHN 06/19/21, girl, PC Josue, Luba, Archer Spouse Waylon (4) COVID-19 affecting in first trimester: COMMENT: asa 81 mg daily, growth US @ 32 7 36 wks.growth nl (5) AMA (advanced maternal age) multigravida 35+: COMMENT: genetic screening options discussed and NIPT planned. (6) History of rupture of uterus: COMMENT: thin MUMTAZ with intact window- plan 37 week delivery, RLTCS 06/04/22 @ 7:10 with SM. celestone given 05/25 and 05/26 (7) Polyhydramnios affecting : COMMENT: Borderline and repeat US 4 wk with MFM. abdomen slightly enlarged. Wkly NST (8) delivery delivered: COMMENT: SM RLTCS girl Katiana 37 h/o uterine window Maternal Data Information JOHN Calculator Estimated Delivery Date Method Current WG Current Estimate 06/19/22 Ultrasound #2 37w 6d Other Estimates 06/09/22 LMP (Certain) 39w 2d 06/25/22 Ultrasound #1 37w 0d Final JOHN Source: LMP Details Operative Information Date of Procedure: 06/04/22 Pre-Operative Diagnosis: Previous Post-Operative Diagnosis: same Indications for : Repeat Elective Indications Narrative: Surgeon: Hayley Keyes MD Classification: Scheduled Procedure Type: low transverse svp programmatic tv #1: Maddie Smith Type of Anesthesia: Spinal Special Medications: tracy Antibiotic Given: Ancef 2 grams IV x1 Drain: Colon to straight drain Estimated Blood Loss: 500 Fluids Replaced: crystalloid Findings Description of Procedure: Spinal anesthesia was placed without difficulty. Oclon catheter was placed. The patient was placed in the dorsal supine position with leftward tilt. Patient was prepped and draped in the normal sterile fashion. Pfannenstiel skin incision was made with the scalpel and carried through to the underlying layer of fascia with the scalpel. Fascia was nicked in the midline and the incision extended laterally. The rectus bellies were dissected off superiorly and inferiorly with out complication both sharply and bluntly. The peritoneum was entered digitally. The incision was stretched and a low transverse uterine incision was made with the scalpel. The 's head was delivered atraumatically followed by the anterior and posterior shoulders without complication the rest of the infant delivered. The cord was clamped and cut and the infant was handed off to awaiting nurse. The placenta was delivered spontaneously immediately following and was noted to be intact and have a three- vessel cord. The uterus was exteriorized cleared of all clots and debris, and the incision was closed in a single layer closure using #1 Monocryl with a figure of eight stitch for hemostasis. The ovaries and fallopian tubes were noted to be within normal limits. The uterus was returned to the maternal abdomen and gutters were cleared of all clots and debris again the incision was checked and then incision covered in tracy. The peritoneum was closed with 3-0 Monocryl in a running fashion and then the stitch broke so it was reclosed. additional stitch of 1-monocryl used over the left rectus for hemostasis. Gloves were changed prior to fascial closure. Fascia was closed with 0 PDS in a running fashion. Subcutaneous tissue was copiously irrigated and the skin was closed with 3-0 Monocryl in a subcuticular fashion. Mepilex dressing was applied without complication. Patient was taken to recovery in stable condition. Presentation: Positive for Vertex Amniotic Membrane Rupture Type: Artificial Amniotic Fluid Description: Clear Placenta Disposition: [facility] Cord Vessel Description: 3 Vessels Delayed Cord Clamping: Yes Complications Risks of Surgery Discussed w/Patient: Bleeding, Infection, Need for Future C- Sections and Injury to surrounding structure(s) including bowel and bladder Vaginal Delivery Complication Complications: None Admit VTE Documentation VTE Present on Admission: No VTE Mechan Device Prophylaxis: SCD's Procedures Urinary/Genital [id number]: [id number] delivery+PP Care([facility])
--- NOTE | 2022-06-04 07:22 | DCINST_ITS ---
Discharge Instructions Diet Discharge Diet: No restrictions Activity Discharge Activity: Return to Normal Activity, May Drive (when pain free and off narcotic pain meds), May Shower and May Take a Tub Bath (in 4 weeks) May resume sexual activity in: 6 weeks Weight Bearing Status: Full weight bearing Lifting Restrictions: under 30 lbs for 6 weeks Dressing / Incision Call your doctor if your incision/area has: Continuous Slow Oozing, Sudden Increased Bleeding, Increased Pain/ Swelling, Increased Redness, Foul Smelling Discharge and - Call your doctor if you observe: Fever of 101 or Higher, Using more than 1 pad per hour, Shortness of breath, Chest pain and Uncontrolled pain Suture Line Care: Avoid Pulling/Pushing and Avoid Pinching/Bending Change Dressing in: 1 week (leave open to air after removed) Remove Dressing in: 1 week (if present) Cleanse incision/area with: Soap & Water and Keep Dressing Clean & Dry Follow Up Care Please Follow Up With: Hayley Keyes MD When: Call to make an appointment with your doctor for a postop visit in 2 and 6 weeks. Test Results: Test results from this visit will be discussed in further detail at your follow- up appointment, if applicable. Discharge Plan Admission Admit Date/Time: 06/04/22 04:40 Attending Provider: Hayley Keyes Primary Care Provider: Gil Uribe Discharge Orders/Prescriptions Prescriptions: New oxycodone-acetaminophen [Percocet] 5-325 mg tablet 1 tab PO Q6H PRN (Reason: pain) 7 Days Qty: 20 0RF naproxen [naproxen] 500 mg tablet 500 mg PO BID PRN PRN (Reason: Pain) Qty: 30 1RF Continued ferrous sulfate 325 mg (65 mg iron) tablet 325 mg PO DAILY PNV cmb [id number] mg combo pack PO venlafaxine 75 mg capsule,extended release 24hr 75 mg PO DAILY Qty: 30 6RF Referrals / Follow Up: Gil Uribe MD [Primary Care Provider] -
[2022-06-04] MEDS: Clindamycin 900 MG/50 ML BAG 75 MG IV (07:45)
[2022-06-04] MEDS: Oxytocin 15 Units/NS 250ml 15 UNITS/250 ML IV.SOLN 83 UNITS IV (08:40)
[2022-06-04] MEDS: Ketorolac 30 MG/ML Syringe IV ×3 (09:45→21:16)
[2022-06-04] MEDS: Venlafaxine XR 75 MG Capsule PO (10:20)
[2022-06-04] MEDS: Lactated Ringers 1,000 ML 100 ML IV (11:58)
[2022-06-04 12:18] LABS: Absolute Neutrophil Count 11.7 X10^3/uL (2.0-7.7); Basophil# 0.04 X10^3/uL; Basophil% 0.3 % (0-1); Eosinophil# 0.01 X10^3/uL; Eosinophils% 0.1 % (0-5); Hematocrit 28.9 % (37-47); Hemoglobin 9.2 g/dL (12.0-15.0); Lymphocyte % 9.4 % (19-41); Mean Corp Hgb Conc 31.8 g/dL (32-36); Mean Corpuscular Volume 91.2 fL (81-99); Mean Platelet Vol. 11.4 fl (6.2-12.0); Monocyte# 0.45 X10^3/uL; Monocyte% 3.3 % (0-10); NRBC Flagged by Analyzer 0 % (0-5); Neutrophil # 11.68 X10^3/uL (2.7-7.7); Neutrophil % 84.6 % (47-70); Platelet Count 181 K/mm3 (150-450); RBC Distribution Width SD 55.7 fl (35.1-43.9); Red Blood Count 3.17 M/mm3 (4.2-5.4); White Blood Count 13.8 K/mm3 (4.4-11.0)
[2022-06-04] MEDS: Ferrous Sulfate 325 MG Tablet PO (13:23)
[2022-06-04] MEDS: Senna/Docusate Sodium 1 Tablet PO (13:23)
[2022-06-04] MEDS: 0.9% Saline Lock 10 ML Syringe IV ×2 (14:55→21:17)
[2022-06-04] MEDS: Enoxaparin 40 MG/0.4 ML Syringe SC (21:16)
[2022-06-05] MEDS: Acetaminophen 500 MG Tablet 1000 MG PO ×4 (00:22→17:50)
[2022-06-05 00:36] VITALS: BP 106/57; PULSE 85; RESP 15; TEMP 36.4; O2SAT 95
[2022-06-05] MEDS: 0.9% Saline Lock 10 ML Syringe IV (03:34)
[2022-06-05] MEDS: Ketorolac 30 MG/ML Syringe IV (03:34)
[2022-06-05 03:43] VITALS: BP 105/57; PULSE 80; RESP 15; TEMP 36.7; O2SAT 96
[2022-06-05 05:17] LABS: Hemoglobin 8.7 g/dL (12.0-15.0); Mean Corp Hgb Conc 32.2 g/dL (32-36); Mean Corpuscular Hgb 29.2 pg (27.0-32.0); Mean Corpuscular Volume 90.6 fL (81-99); Mean Platelet Vol. 11.2 fl (6.2-12.0); Platelet Count 154 K/mm3 (150-450); RBC Distribution Width CV 17.3 % (11.6-14.6); RBC Distribution Width SD 57.1 fl (35.1-43.9); Red Blood Count 2.98 M/mm3 (4.2-5.4); White Blood Count 11.3 K/mm3 (4.4-11.0)
[2022-06-05 07:44] VITALS: BP 107/68; PULSE 83; RESP 16; TEMP 36.3; O2SAT 95
--- NOTE | 2022-06-05 07:51 | PCM.PN.OB ---
Subjective Subjective Patient doing well without complaints. Tolerating PO. Ambulating and voiding without difficulty. Feeding well. Denies chest pain, shortness of breath, calf pain/swelling, fevers, chills, lightheadedness. Objective Data Objective Data Vital Signs: Vital Signs Temp Pulse Resp BP Pulse Ox O2 Del Method 97.4 F L 83 16 107/68 95 Room Air 06/05/22 07:44 06/05/22 07:44 06/05/22 07:44 06/05/22 07:44 06/05/22 07:44 06/05/22 07:44 Oxygen Delivery Method Room Air Weight: 184 lb 9.6 oz Body Mass Index (BMI) 31.6 Intake & Output: Intake and Output for Last 24 Hours 06/03/22 06/04/22 06/05/22 23:59 23:59 23:59 Intake Total 1808.42 / 1808.42 Output Total 1200 / 1200 750 / 750 Balance 608.42 / 608.42 -750 / -750 Lab / Micro Data Result Diagrams: 06/05/22 05:10 Labs: Laboratory Results - last 24 hr 06/04/22 12:05: WBC 13.8 H, RBC 3.17 L, Hgb 9.2 L, Hct 28.9 L, MCV 91.2, MCH 29.0, MCHC 31.8 L, RDW Std Deviation 55.7 H, RDW Coeff of Basil 17.0 H, Plt Count 181, MPV 11.4, Immature Gran % (Auto) 2.300 H, Neut % (Auto) 84.6 H, Lymph % (Auto) 9.4 L, [place] % (Auto) 3.3, Eos % (Auto) 0.1, Baso % (Auto) 0.3, Absolute Neuts (auto) 11.7 H, Absolute Lymphs (auto) 1.30, Nucleated RBC % 0 06/05/22 05:10: WBC 11.3 H, RBC 2.98 L, Hgb 8.7 L, Hct 27.0 L, MCV 90.6, MCH 29.2, MCHC 32.2, RDW Std Deviation 57.1 H, RDW Coeff of Basil 17.3 H, Plt Count 154, MPV 11.2 Physical Exam Const alert and oriented x3 HEENT normocephalic Eyes PERRL Neck full ROM Resp normal respiratory effort GI soft to palpation GI Narrative: FF below U. Dressing dry and intact Palpation: tender other (appropriately) Assessment & Plan (1) delivery delivered: COMMENT: SM RLTCS girl Katiana 37 h/o uterine window PLAN: Plan s/p LTCS PPD # 1 1. routine post care 2. breast feeding- support given 3. rh positive 4. rubella immune
[2022-06-05] MEDS: Naproxen 500 MG Tablet PO ×2 (09:48→17:50)
[2022-06-05] MEDS: Enoxaparin 40 MG/0.4 ML Syringe SC (09:48)
[2022-06-05] MEDS: Venlafaxine XR 75 MG Capsule PO (09:49)
[2022-06-05] MEDS: Senna/Docusate Sodium 1 Tablet PO (09:49)
[2022-06-05] MEDS: Ferrous Sulfate 325 MG Tablet PO (12:32)
[2022-06-05 14:29] VITALS: BP 116/68; PULSE 87; RESP 16; TEMP 36.5; O2SAT 96
--- NOTE | 2022-06-05 16:30 | CASEMGMT ---
social Work Brief Assessment Labor and Delivery Unit Patient Address: [address], [place] [address] Phone number: [phone] Date of Referral/Notification: 06/05/2022 Time of Referral: 1440 Referred By: Dr. Rojas Date of Intervention: 06/05/2022 Time of Intervention: 1643 Reason for Referral: Maternal history of anxiety and depression, currently on Effexor Informant: Medical record and mother of baby (MOB) Isabela Riddle; father of baby (FOB) Waylon Riddle present. History: GERARD is a 37-year-old female, to the FOB. Parents have been together for about 10 years and now have 4 children together. Minor children include oJsue (02/02/2015), Luba (07/21/2016), Archer (01/05/2021), and baby girl Katiana (06/04/2021). GERARD is 6, para 3 now 5 after delivering Katiana. care adequate. Record indicates history of maternal uterine window. Katiana was delivered via section delivery. MOB and FOB reported that Katiana is going to be their last child. Katiana delivered weighing 7 pounds 3 ounces at 37.6 weeks gestation. Apgars 8 and 9 at 1 and 5 minutes of life respectively. 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 GERARD is currently a [id number]-tq-cdmm mother and the FOB is self-employed. MOB reports history of depression anxiety but more in particular with anxiety. Currently treated with Effexor and MOB reports this works well. MOB denies any history of mood or anxiety issues. No reports of any type of substance abuse and maternal drug screen on 11/03/2021 was negative. Upon admission MOB denied any type of safety or domestic violence issues. No indication during this social work intervention. Assessment: Met with MOB and FOB, introducing to self and social work role. MOB sitting up in chair breast-feeding , good eye contact, bright affect, and spontaneous in conversation. MOB and FOB bantering [id number]-[id number] with each other and appeared relaxed. FOB also engaged in conversation. MOB and FOB deny any concerns with living situation or environment, no issues with utilities, food security or transportation. Reported to have all necessary supplies including safe sleep space for the . FOB will be off of work the remainder of the week to assist. MOB does have family available as well if needed. MOB denies any current concerns with depression or anxiety and reports plan to remain on medication in the timeframe. Educated to mood and anxiety disorders and that both mothers and fathers are at risk for such. Encouraged speaking with healthcare providers should symptoms arise and/or become distressing. Provided information on mood and anxiety disorders including resources that parents can reach out to if needed after discharge. Parents deny any type of financial stress or need for additional resources. No voiced concerns by staff regarding parent-child interactions or bonding. Plan: MOB and will discharge home when medically ready. Resources provided on mood and anxiety disorders. No further needs requested or indicated. -LULA Ewing, MARKY *This note was generated with webme dictation software. It may contain incorrect words, spelling, and punctuation that were not noted in review of the chart prior to signing*
[2022-06-05] MEDS: oxyCODONE 5 MG Tablet PO ×2 (18:59→23:06)
[2022-06-05 20:16] VITALS: BP 125/58; PULSE 79; RESP 16; TEMP 36.5; O2SAT 97
[2022-06-06] MEDS: Acetaminophen 500 MG Tablet 1000 MG PO ×2 (00:26→06:25)
[2022-06-06 02:06] VITALS: BP 122/69; PULSE 77; RESP 16; TEMP 36.4; O2SAT 97
[2022-06-06] MEDS: Naproxen 500 MG Tablet PO ×2 (02:09→09:45)
[2022-06-06] MEDS: oxyCODONE 5 MG Tablet PO ×2 (04:28→09:04)
--- NOTE | 2022-06-06 08:04 | PCM.PN.OB ---
Subjective Subjective Patient doing well without complaints. Tolerating PO. Ambulating and voiding without difficulty. Feeding well. Denies chest pain, shortness of breath, calf pain/swelling, fevers, chills, lightheadedness. Objective Data Objective Data Vital Signs: Vital Signs Temp Pulse Resp BP Pulse Ox O2 Del Method 97.6 F L 77 16 122/69 H 97 Room Air 06/06/22 02:06 06/06/22 02:06 06/06/22 02:06 06/06/22 02:06 06/06/22 02:06 06/06/22 02:06 Oxygen Delivery Method Room Air Weight: 184 lb 9.6 oz Body Mass Index (BMI) 31.6 Intake & Output: Intake and Output for Last 24 Hours 06/04/22 06/05/22 06/06/22 23:59 23:59 23:59 Intake Total 1808.42 / 1808.42 Output Total 1200 / 1200 750 / 750 Balance 608.42 / 608.42 -750 / -750 Lab / Micro Data Result Diagrams: 06/05/22 05:10 Physical Exam Const alert and oriented x3 HEENT normocephalic Eyes PERRL Neck full ROM Resp normal respiratory effort GI soft to palpation GI Narrative: FF below U. Dressing dry and intact Palpation: tender other (appropriately) Assessment & Plan (1) delivery delivered: COMMENT: RLTCS girl Katiana 37 h/o uterine window (2) Anxiety and depression: COMMENT: currently on Effexor; stable PLAN: Plan s/p LTCS PPD # 2 1. routine post care 2. breast feeding- support given 3. rh positive 4. rubella immune 5. home today
[2022-06-06 08:45] VITALS: BP 111/51; PULSE 93; RESP 16; TEMP 36.8; O2SAT 98
[2022-06-06] MEDS: Venlafaxine XR 75 MG Capsule PO (09:45)
[2022-06-06] MEDS: Enoxaparin 40 MG/0.4 ML Syringe SC (09:45)
[2022-06-06] MEDS: Senna/Docusate Sodium 1 Tablet PO (09:46)
== END 2022-06-06 10:36 | disposition home or self-care (01) | DRG 540 ==
PROVIDERS: Admitting Provider Obstetrics & Gynecology; PCP Family Medicine; Visit Provider Obstetrics & Gynecology
PROC: 10D00Z1 Extraction of Products of Conception, Low, Open Approach (ICD-10-PCS; CPT 59514; principal; 2022-06-04 06:55)
DX: O34.211 Maternal care for low transverse scar from previous cesarean delivery (principal); O40.3XX0 Polyhydramnios, third trimester, not applicable or unspecified; F32.A Depression, unspecified; F41.9 Anxiety disorder, unspecified; O99.344 Other mental disorders complicating childbirth; Z37.0 Single live birth; Z3A.37 37 weeks gestation of pregnancy; Z79.899 Other long term (current) drug therapy
CPT/HCPCS: 59050; 85025; 85027; 86850; 86900; 86901; 94668; 99221; J7120; A4216; G0378; J2405

== ENCOUNTER → 2023-07-01 | Outpatient (CLI) | payer MEDICAID, SELFPAY ==
[2023-07-01 13:01] LABS: Absolute Lymphocyte Count 1.97 X10^3/uL (0.83-4.51); Absolute Neutrophil Count 3.3 X10^3/uL (2.0-7.7); Basophil# 0.06 X10^3/uL; Eosinophil# 0.15 X10^3/uL; Eosinophils% 2.5 % (0-5); Hematocrit 39.5 % (37-47); Hemoglobin 12.3 g/dL (12.0-15.0); Lymphocyte # 1.97 X10^3/ul (0.83-4.51); Lymphocyte % 32.6 % (19-41); Mean Corp Hgb Conc 31.1 g/dL (32-36); Mean Corpuscular Volume 86.6 fL (81-99); Mean Platelet Vol. 11.5 fl (6.2-12.0); Monocyte# 0.49 X10^3/uL; Monocyte% 8.1 % (0-10); NRBC Flagged by Analyzer 0 % (0-5); Neutrophil # 3.34 X10^3/uL (2.7-7.7); Neutrophil % 55.3 % (47-70); Platelet Count 266 K/mm3 (150-450); RBC Distribution Width CV 13.3 % (11.6-14.6); RBC Distribution Width SD 41.8 fl (35.1-43.9); Red Blood Count 4.56 M/mm3 (4.2-5.4)
[2023-07-01 13:50] LABS: Thyroid Stim Hormone (TSH) 1.66 uIU/mL (0.358-3.74)
[2023-07-05 13:07] LABS: HPV APTIMA, High Risk Negative (Negative)
== END | disposition home or self-care (01) ==
PROVIDERS: PCP Family Medicine; Referring Provider Obstetrics & Gynecology; Visit Provider Obstetrics & Gynecology
DX: Z12.4 Encounter for screening for malignant neoplasm of cervix (principal); Z13.29 Encounter for screening for other suspected endocrine disorder; N92.0 Excessive and frequent menstruation with regular cycle
CPT/HCPCS: 36415; 84443; 85025; 87624; 88175; G0145